=== PATIENT | female | born 1965 | race Caucasian/White ===

== ENCOUNTER 2020-04-21 12:19 | Inpatient (IN) | payer OTHER ==
[~2020-04-21] VITALS: Ht 165.1 cm; Wt 88.8 kg
[2020-04-21] VITALS (27 sets, daily range): BP systolic 87–110; BP diastolic 52–72
[2020-04-21] MEDS ORDERED: FUROSEMIDE 40MG/4ML VIAL (J1940) IV ONE (12:30)
[2020-04-21] MEDS ORDERED: ASPIRIN 81 MG CHEW TABLET PO ONE (12:30)
--- NOTE | 2020-04-21 13:08 | REP ---
Clinical: Chest pain. Comparison: None. Findings: Moderate left pleural effusion with left lower lobe consolidation along with trace right basilar atelectasis and small right pleural reaction. Cardiomegaly. Evidence for prior sternotomy. Skeletal structures are intact. Impression: Moderate left and small right pleural effusions with left lower lobe consolidation and right basilar atelectasis. Electronically Signed by Clinton Correa MD 04/21/2020 12:59 P
[2020-04-21] MEDS ORDERED: PROV108A INH (13:12)
[2020-04-21] MEDS ORDERED: K-TA10TA2 PO (13:12)
[2020-04-21] MEDS ORDERED: BASA100I SC (13:12)
[2020-04-21] MEDS ORDERED: ATOR40TA75 PO (13:12)
[2020-04-21] MEDS ORDERED: SUMA50TA2 PO (13:12)
[2020-04-21] MEDS ORDERED: STEG15TA PO (13:12)
[2020-04-21] MEDS ORDERED: METO200T28 PO (13:12)
[2020-04-21] MEDS ORDERED: HYDR-3713 PO (13:12)
[2020-04-21] MEDS ORDERED: INCR1INH INH (13:12)
[2020-04-21] MEDS ORDERED: AMIO400T7 PO (13:12)
[2020-04-21] MEDS ORDERED: OMEP-218 PO (13:12)
[2020-04-21] MEDS ORDERED: FERR325T16 PO (13:12)
[2020-04-21] MEDS ORDERED: ELIQ5TAB PO (13:12)
[2020-04-21] MEDS ORDERED: SUCR1TA PO (13:12)
[2020-04-21] MEDS ORDERED: FOLI1TAB11 PO (13:12)
[2020-04-21] MEDS ORDERED: MM S100C PO (13:12)
[2020-04-21] MEDS ORDERED: LOSA50TA88 PO (13:12)
[2020-04-21] MEDS ORDERED: ASPI81TA26 PO (13:12)
[2020-04-21] MEDS ORDERED: FURO20TA2 PO (13:12)
[2020-04-21] MEDS ORDERED: ADME100I SC (13:12)
[2020-04-21] MEDS ORDERED: METO10TA2 PO (13:12)
[2020-04-21] MEDS ORDERED: ALB2.5NEB NEB (13:12)
[2020-04-21] MEDS ORDERED: NEUR600T PO (13:12)
[2020-04-21] MEDS ORDERED: ONDANSETRON 4MG/2ML VIAL IV ONE (13:15)
[2020-04-21 14:43] LABS: VENOUS BASE EXCESS 6.2 (-2.0-2.0); VENOUS HCO3 31.7 MEQ/L (23.0-27.0); VENOUS PARTIAL PRESSURE CO2 50.4 mmHg (38.0-50.0); VENOUS PARTIAL PRESSURE O2 55.8 mmHg (30.0-50.0); VENOUS PH 7.416 UNITS (7.330-7.430); VENOUS STANDARD HCO3 29.9 MEQ/L; VENOUS TOTAL CO2 33.2 MEQ/L (24.0-28.0)
[2020-04-21] MEDS ORDERED: PERCOCET 5MG/325MG TAB PO ONE (14:45)
[2020-04-21 14:51] LABS: BASO % 0.4 % (0.0-1.0); EOS # 0.2 10^3/uL (0.0-0.5); EOS % 2.1 % (0.0-3.0); HEMATOCRIT 31.1 % (36.0-47.0); HEMOGLOBIN 9.1 g/dl (12.0-15.5); LYMPH # 2.1 10^3/uL (1.5-5.0); LYMPH % 18.7 % (24.0-44.0); MEAN CORPUSCULAR HEMOGLOBIN 23.9 pg (27.0-33.0); MEAN CORPUSCULAR HGB CONC 29.3 g/dl (32.0-36.5); MEAN CORPUSCULAR VOLUME 81.8 fl (80.0-96.0); MONO # 1.2 10^3/uL (0.0-0.8); MONO % 10.4 % (0.0-5.0); NEUTROPHILS # 7.6 10^3/uL (1.5-8.5); NEUTROPHILS % 67.6 % (36.0-66.0); PLATELET COUNT, AUTOMATED 410 10^3/uL (150-450); WHITE BLOOD COUNT 11.2 10^3/uL (4.0-10.0)
[2020-04-21 15:02] LABS: INR 1.11
[2020-04-21 15:15] LABS: BLOOD UREA NITROGEN 16 MG/DL (7-18); CALCIUM LEVEL 8.3 MG/DL (8.5-10.1); CARBON DIOXIDE LEVEL 33 MEQ/L (21-32); CHLORIDE LEVEL 96 MEQ/L (98-107); CK-MB VALUE MASS < 1.0 NG/ML (<3.6); CPK CREATINE PHOSPHOKINASE 29 U/L (26-192); GLOMERULAR FILTRATION RATE > 60.0 (>51); GLUCOSE, FASTING 159 MG/DL (70-100); MB/CK RELATIVE INDEX 3.45 (< OR =4); NT-PRO BNP 7510 PG/ML (<125); POTASSIUM SERUM 4.4 MEQ/L (3.5-5.1); SODIUM LEVEL 134 MEQ/L (136-145); TROPONIN I 0.07 NG/ML (< 0.10)
[2020-04-21] MEDS ORDERED: HumaLOG INSULIN (NovoLOG) PER UNIT SC SCH (18:00)
[2020-04-21] MEDS ORDERED: AMIO200T37 PO (18:03)
[2020-04-21] MEDS ORDERED: METO1TAB32 PO (18:03)
[2020-04-21] MEDS ORDERED: LOSA25TA14 PO (18:03)
--- NOTE | 2020-04-21 18:27 | HPEPDOC ---
General Date of Admission 04/21/2020 Date of Service: Apr 21, 2020 Chief Complaint The patient is a 54-year-old female admitted with a reason for visit of Irregular Heart Rate. Source: Patient Exam Limitations: Clinical conditions Timing/Duration: Day(s) (1 day for N/V and resting dyspnea started this morning), Week(s) (2 weeks for left sided chest pain) Severity: Severe Associated Symptoms: Chest Pain History of Present Illness Patient is a 54 yo female with hx of CAD s/p 2 stents in 2011 and CABG 04/08/2020 done at [facility] presented to [facility] ER due to resting dyspnea that started gradually this morning with nausea and 1 episode of emesis that started this morning. Denies any aggravating factor of resting dyspnea with alleviating factor being laying still. Reported left sided intermittent dull chest pain located under her left breast region since her CABG on 04/08/2020; reported no aggravating factor with alleviating factor including pain medication; denies radiation of chest pain. She reported pleuritic chest pain; denies dyspnea or orthopnea. When being asked if she had experience similar symptoms prior, pt reported yes when she had her heart attack. Denies any fever, chills, abdominal pain, constipation, diarrhea, or blood in stool. Denies any weight changes; rep orted that she is not on a diet restriction at this time Home Medications Scheduled Amiodarone HCl (Amiodarone HCl) 200 Mg Tablet, 200 MG PO BID@0830,1830 Apixaban (Eliquis) 5 Mg Tablet, 5 MG PO BID, (Reported) Aspirin (Aspirin EC) 81 Mg Tablet.dr, 81 MG PO DAILY, (Reported) Atorvastatin Calcium (Atorvastatin Calcium) 40 Mg Tablet, 40 MG PO DAILY, (Reported) Ertugliflozin Pidolate (Steglatro) 15 Mg Tablet, 15 MG PO DAILY, (Reported) Ferrous Gluconate (Ferrous Gluconate) 324 Mg Tablet, 324 MG PO BIDWM, (Reported) Folic Acid (Folic Acid) 1 Mg Tablet, 1 MG PO DAILY, (Reported) Furosemide (Furosemide) 40 Mg Tablet, 40 MG PO DAILY Gabapentin (Neurontin) 600 Mg Tablet, 600 MG PO TID, (Reported) Insulin Glargine,Hum.rec.anlog (Jamesaglcatherine Ramseypen U-100) 100 Unit/1 Ml Insuln.pen, 45 UNIT SC QHS, (Reported) Insulin Lispro (Admelog) 100 Unit/1 Ml Vial, 1 DOSE SC AC, (Reported) PER SLIDING SCALE Losartan Potassium (Cozaar) 25 Mg Tablet, 25 MG PO QHS Metoclopramide HCl (Metoclopramide HCl) 10 Mg Tablet, 10 MG PO QID, (Reported) Omeprazole (Omeprazole) 20 Mg Capsule.dr, 20 MG PO DAILY, (Reported) Sucralfate (Sucralfate) 1 Gm Tablet, 1 GM PO QID, (Reported) Umeclidinium [place] (Incruse Ellipta) 62.5 Mcg Blst.w.dev, 1 PUFF INH DAILY, (Reported) Scheduled PRN Albuterol Sulfate (Proventil Hfa) 6.7 Gm Hfa.aer.ad, 2 PUFF INH Q4H PRN for SOB/WHEEZING, (Reported) Albuterol Sulfate (Albuterol Sulfate) 2.5 Mg/0.5 Ml Vial.neb, 1 VIAL NEB Q6H PRN for SOB/WHEEZING, (Reported) Hydrocodone/Acetaminophen (Hydrocodone-Acetamin 5-325 mg) 1 Each Tablet, 2 TAB PO Q4H PRN for pain, (Reported) Sumatriptan Succinate (Sumatriptan Succinate) 50 Mg Tablet, 1 TAB PO DAILY PRN for MIGRAINE, (Reported) MAY REPEAT ONCE IN 2 HOURS IF SYMPTOMS PERSIST Allergies Coded Allergies: FISH (Verified Allergy, Unknown, 04/21/20) Past Medical History Medical History CAD s/p stents 09/2012 cardiac cath DM type 2 with peripheral neuropathy, gastroparesis Left lung cancer s/p left lower lobectomy 11/27/2017 Hyperlipidemia Hypertension COPD stage 3 Bilateral venous insufficiency Complex migraine Face arthritis DJD cervical spine C5-7 facet arthritis Gastritis Nicotine use disorder hx of Marijuna induced cyclical vomiting syndrome Hx of hypertensive urgency Surgical History See above Family History Patient's family history was reviewed and is noncontributory to this hospitalization Social History Patient is an active smoker She is noncompliant with medications and dietary restrictions A-FIB/CHADSVASC A-FIB History Current/History of A-Fib/PAF?: Yes Current PO Anticoag Therapy: Yes Age/Risk Factor Scoring CHADSVASC: CHADSVASC Response (Comments) Value Age Risk Factor Age < 65 years old 0 Gender Risk Factor Female 1 Hx of CHF No 0 Hx of HTN No 0 Hx of Diabetes Yes 1 Hx of Vascular Disease Yes 1 Total 3 Treatment Treatment ordered: Holding Other (holding home med eliquis) Reason Anticoagulant not given: Recent/upcomin procedure Review of Systems Constitutional: Denies: Chills, Fever, Weight Loss Pulmonary: Reports: Dyspnea Cardiovascular: Reports: Chest Pain; Denies: Palpitations, Orthopnea Gastrointestinal: Reports: Nausea, Vomiting; Denies: Abdominal Pain, Diarrhea, Constipation Physical Examination General Exam: Positive: Alert, Mild Distress ENT Exam: Positive: Atraumatic, Mucous membr. moist/pink Chest Exam: Positive: Other (frictional rub) Heart Exam: Positive: Rate Normal, Regular Rhythm, Rubs Telemetry: Positive: Sinus Abdomen Exam: Positive: Normal bowel sounds, Soft; Negative: Tenderness Extremity Exam: Negative: Edema, Swelling Skin Exam: Positive: Nl turgor and temperature Neuro Exam: Positive: Normal Speech, Normal Tone Psych Exam: Positive: Mental status NL, Memory Intact Vital Signs Vital Signs Date Time Temp Pulse Resp B/P (MAP) Pulse Ox O2 Delivery O2 Flow Rate FiO2 04/21/20 18:02 67 99 04/21/20 17:53 114/66 (82) 04/21/20 15:29 18 04/21/20 12:24 99.0 Room Air Laboratory Data Labs 24H Laboratory Tests 2 04/21/20 12:50: POC Troponin I (Misc) 0.08 04/21/20 14:36: Immature Granulocyte % (Auto) 0.8, Neutrophils (%) (Auto) 67.6H, Lymphocytes (%) (Auto) 18.7L, Monocytes (%) (Auto) 10.4H, Eosinophils (%) (Auto) 2.1, Basophils (%) (Auto) 0.4, Neutrophils # (Auto) 7.6, Lymphocytes # (Auto) 2.1, Monocytes # (Auto) 1.2H, Eosinophils # (Auto) 0.2, Basophils # (Auto) 0.0, Nucleated Red Blood Cells % (auto) 0.0, Prothrombin Time 14.0, Prothromb Time International Ratio 1.11, Blood Gas Bicarbonate Standard 29.9, Venous Blood pH 7.416, Venous Blood Partial Pressure CO2 50.4H, Venous Blood Partial Pressure O2 55.8H, Venous Blood Total Carbon Dioxide 33.2H, Venous Blood HCO3 31.7H, Venous Blood Oxygen Saturation 87.0H, Venous Blood Base Excess 6.2H, Anion Gap 5L, Glomerular Filtration Rate > 60.0, Calcium Level 8.3L, Total Creatine Kinase 29, Creatine Kinase MB < 1.0, Creatine Kinase MB Relative Index 3.45, Troponin I 0.07, ZU-Jls-U-Type Natriuretic Peptide 7510H CBC/BMP Laboratory Tests 04/21/20 14:36 Assessment/Plan 1. Left sided moderate pleural effusion with right sided small pleural effusion likely related to recent CABG. CABG 04/08/2020. Dr. Adair was consulted with chest tube placement. CT chest ordered. Pt sat well on RA. Last eliquis dose 04/20/2020 morning. Protonix daily for GI prophylaxis.Oxygen therapy, resp treatment with incentive spirometry 2. Unstable angina. Reported to be presented since 04/08/2020 after CABG, anthony mccloud 2/2 pleural effusion as pt also reported pleuritic chest pain. A fib with RVR noted in ER EKG. Currently at RRR. First trop neg; repeat trop. Echo ordered. Cont home med statin and aspirin. S/p 324mg aspirin in ER. Zofran and pain meds PRN. 48 hr tele. Lactic acid ordered. 3. HTN. Hx of HTN. Pt's BP soft with lowest MAP recorded to be 51 at 1747. Will hold home HTN med at this time. Pt received 1 dose of IV lasix 40mg in the ER. Will order 250ml NS bolus at this time per group discussion; may give more IV bolus depending on blood pressure. IV D5 NS a rate of 75ml/hr was ordered by Dr. Adair. Cont home med statin, aspirin. Vital signs standard of care. 4. CAD with hx of 2 stents placed in 2011 and recent CABG on 04/08/2020. Cont home med amiodarone, aspirin 81mg QD and atorvastatin 40mg QD. Hold eliquis as pt is getting a chest tube placement. Continue home med amiodarone. Hold home med metoprolol. Cardiology Dr. Sherman and intensivnist Dr. Hyman consulted. 5. DM type 2 with peripheral neuropathy. Hold home insulin and losartan as patient's BP is soft. Hold home med Steglatro. Insulin SS Q6H with glucose check Q6h, hypoglycemia protocol. Cont home gabapentin for peripheral neuropathy 6. Gastroparesis 2/2 DM neuropathy. Cont home med metoclopramide. Zofran PRN 7. Gastritis. Hx of gastritis. Pt on protonix 40mg QD. Cont home med sucralfate. 8. Migraine. Cont home med sumatriptan. 9. Paroxysmal a. fib with RVR, new onset, resolved. Pt had EKG in ER 04/21/2020 showing A. fib with RVR with ventricular rate of 102. At the time of examination patient was in sinus rhythm without tachycardia. Resume home amiodarone. Hold home eliquis for procedure now. 10. COPD. Hx of COPD. Mild hypercarbia with CO2 33.2. Replace home incruse elipta to tiotropium as no formula in house. Xopenex scheduled and PRN. Oxygen therapy 11. Compensated respiratory acidosis with metabolic alkalosis. CO2 33.2 on ABG. Replace home incruse elipta to tiotropium as no formula in house. Xopenex scheduled and PRN. Oxygen therapy DVT prophylaxis: SCD and TEDS / Will start Lovenox for DVT prophylaxis (while off Eliquis) - discussed with Cardiology GI prophylaxis: protonix PO Plan / VTE VTE Prophylaxis Ordered?: Yes Plan IVF: Initiate Diet: Make NPO Activity: Bedrest Therapy: PT Diagnostics: Check Labs, Repeat Labs in AM, TTE Anticipated Discharge: Home GME ATTESTATION GME ATTESTATION My faculty preceptor for this patient encounter was physically present during the encounter and was fully available. All aspects of the patient interview, examination, medical decision making process, and medical care plan development were reviewed and approved by the faculty preceptor. The faculty preceptor is aware and concurs with the plan as stated in the body of this note and will attest to such by his/her cosignature. ATTENDING NOTE I, Lucero Ramirez, have independently examined this patient and performed my own physical exam, as well as reviewed the documentation and edited where necessary. I have discussed in detail with the resident / student the findings and plan of treatment as documented by the resident / student and edited their note. I agree with their findings and treatment plan and have edited their documentation. I will continue to follow the patient during this hospital stay. - I seen and evaluated this patient at the bedside - Patient does appear to reveal signs of fluid overload; diminished lung sounds at bilateral lower lung perla and lower extremity edema - Patient has received furosemide 40 IV in the emergency room and upon evaluation, patient was noted to be hypotensive with SBPs in 70s (MAP < 65) - Imaging his chest x-ray did reveal evidence of bilateral pleural effusions, le ft greater than right - At this time, we will get stat CT chest, echocardiogram and admit patient to ICU for further monitoring - Continue telemetry monitoring / troponin trend - We have consult and children's ministry director for possible central line placement and pressor support if required - Consult to cardiothoracic surgery for evaluation of pleural and possibly pericardial effusion - Consulted Dr. Sherman given recent CABG procedure completed on 04/09 BITA GILBERT DO Apr 21, 2020 18:27 LUCERO RAMIREZ MD Apr 21, 2020 19:44
[2020-04-21] MEDS ORDERED: PERCOCET 5MG/325MG TAB PO PRN (18:30)
[2020-04-21] MEDS ORDERED: BISACODYL 10 MG SUPP PR PRN (18:30)
[2020-04-21] MEDS ORDERED: LEVALBUTEROL 1.25 MG/0.5 ML CONCENTRATE NEB NEB PRN (18:30)
--- NOTE | 2020-04-21 18:39 | REPVR ---
PROCEDURE INFORMATION: Exam: CT Chest Without Contrast Exam date and time: 04/21/2020 6:16 PM Age: 54 years old Clinical indication: Other: Effussions TECHNIQUE: Imaging protocol: Computed tomography of the chest without contrast. 3D rendering: MIP and/or 3D reconstructed images were created by the technologist. Radiation optimization: All CT scans at this facility use at least one of these dose optimization techniques: automated exposure control; mA and/or kV adjustment per patient size (includes targeted exams where dose is matched to clinical indication); or iterative reconstruction. COMPARISON: [place] PORTABLE CHEST X-RAY 04/21/2020 12:46 PM FINDINGS: Lungs: Semi-solid predominate ground-glass parenchymal opacities demonstrated in the right upper lobe, and minimally in the right middle lobe. Findings may represent chronic changes however are also consistent with acute or subacute pneumonitis. Compressive atelectasis at both lung bases. Pleural space: Small right pleural effusion and moderate left pleural effusion. Heart: Status post CABG. Cardiomegaly. Aorta: The aorta demonstrates mild atherosclerotic calcification. Lymph nodes: Unremarkable. No enlarged lymph nodes. Bones/joints: Status post sternotomy. Soft tissues: Unremarkable. IMPRESSION: 1. Semi-solid predominate ground-glass parenchymal opacities demonstrated in the right upper lobe, and minimally in the right middle lobe. Findings may represent chronic changes however are also consistent with acute or subacute pneumonitis. 2. Small right pleural effusion and moderate left pleural effusion. 3. Status post CABG. Cardiomegaly. Electronically signed by: Guy Saldaña On 04/21/2020 18:39:45 PM
[2020-04-21] MEDS ORDERED: NS 250 ML IV ONE (18:45)
[2020-04-21] MEDS ORDERED: DEXTROSE 50% 50 ML SYRINGE IV PRN (19:00)
[2020-04-21] MEDS ORDERED: SUMAtriptan SUCCINATE 25 MG TAB PO PRN (19:00)
[2020-04-21] MEDS ORDERED: D5W/0.9% SODIUM CHLORIDE 1,000 ML IV SCH (19:00)
[2020-04-21] MEDS ORDERED: GLUCOSE 4GM CHEW TABLET PO PRN (19:00)
[2020-04-21] MEDS ORDERED: GLUCAGON INJ 1MG VIAL SC PRN (19:00)
[2020-04-21] MEDS ORDERED: ATORVASTATIN 20 MG TAB PO ONE (19:00)
[2020-04-21] MEDS ORDERED: MIDAZOLAM INJ 2MG/2ML VIAL (J2250 PER 1MG) As Ordered ONE ×2 (19:18→19:19)
[2020-04-21] MEDS ORDERED: flumazeniL 0.5 MG/5 ML VIAL As Ordered ONE (19:19)
[2020-04-21] MEDS ORDERED: LIDOCAINE 1% MDV 20ML VIAL As Ordered ONE ×2 (19:20→20:10)
[2020-04-21] MEDS ORDERED: LIDOCAINE 1% MDV 20ML VIAL IM ONE (19:30)
[2020-04-21] MEDS ORDERED: MIDAZOLAM INJ 2MG/2ML VIAL (J2250 PER 1MG) IV STA (19:30)
[2020-04-21 20:02] LABS: LDH LACTATE DEHYDROGENASE 206 U/L (84-246)
[2020-04-21 20:05] LABS: SOURCE, BODY FLUID PLEURAL
[2020-04-21 20:06] LABS: APPEARANCE, BODY FLUID CLOUDY (CLEAR); PLEURAL FL COLOR YELLOW (COLORLESS)
[2020-04-21 20:07] LABS: PH BODY FLUID 7.471 UNITS (NOT ESTABLISHED); SOURCE, BODY FLUID pH PLEURAL
--- NOTE | 2020-04-21 20:09 | REP ---
Clinical: Effusion. Chest tube placement. Comparison: 04/21/2020 at 12:48 p.m. Findings: Chest tube overlies the left base and left pleural effusion is decreased from prior examination. No pneumothorax. Small right pleural effusion and right basilar atelectasis remain unchanged. Mediastinum and cardiac silhouette stable. Impression: 1. Left-sided chest tube with decreased left pleural effusion. 2. The small right pleural effusion and right basilar atelectasis is unchanged. Electronically Signed by Clinton Correa MD 04/21/2020 08:01 P
[2020-04-21 20:28] LABS: AMYLASE, BODY FLUID 7 U/L (NOT ESTABLISHED); CHOLESTEROL, BODY FLUID < 50 MG/DL (NOT ESTABLISHED); LDH, BODY FLUID 167 U/L (NOT ESTABLISHED); SOURCE, BODY FLUID ALBUMIN PLEURAL; SOURCE, BODY FLUID AMYLASE PLEURAL; SOURCE, BODY FLUID CHOL PLEURAL; SOURCE, BODY FLUID GLUCOSE PLEURAL; SOURCE, BODY FLUID LDH PLEURAL; SOURCE, BODY FLUID TOT PROTEIN PLEURAL; SOURCE, BODY FLUID TRIG PLEURAL; TOTAL PROTEIN, BODY FLUID 2.8 G/DL (NOT ESTABLISHED); TRIGLYCERIDE, BODY FLUID 22 MG/DL (NOT ESTABLISHED)
[2020-04-21] MEDS ORDERED: NS 500 ML IV ONE (20:30)
[2020-04-21] MEDS: FOLIC ACID 1 MG TAB PO SCH (21:00)
[2020-04-21] MEDS ORDERED: ENOXAPARIN 40MG/0.4ML SYRINGE (J1650 PER 10MG) SC SCH (21:00)
[2020-04-21] MEDS: HumaLOG INSULIN (NovoLOG) PER UNIT SC SCH (21:00)
[2020-04-21] MEDS: GABAPENTIN 300 MG CAP PO SCH (21:02)
[2020-04-21] MEDS: DOCUSATE SODIUM 100 MG CAP PO SCH (21:03)
[2020-04-21] MEDS: METOCLOPRAMIDE 10 MG TAB PO SCH (21:03)
[2020-04-21] MEDS: SUCRALFATE 1 GM TAB PO SCH (21:03)
[2020-04-21] MEDS: PIPERACILLIN/TAZOBACTAM SOD 3.375 GM in D5W MINI-BAG PLUS 50 ML IV SCH (21:05)
[2020-04-21] MEDS: PERCOCET 5MG/325MG TAB PO PRN (21:05)
[2020-04-21] MEDS: LEVALBUTEROL 1.25 MG/0.5 ML CONCENTRATE NEB NEB SCH (21:20)
[2020-04-21 21:32] LABS: CK-MB VALUE MASS < 1.0 NG/ML (<3.6); CPK CREATINE PHOSPHOKINASE 27 U/L (26-192); TROPONIN I 0.07 NG/ML (< 0.10)
[2020-04-21 21:55] LABS: ALBUMIN 2.4 GM/DL (3.2-5.2); ALT/SGPT 17 U/L (12-78); BILIRUBIN,TOTAL 0.4 MG/DL (0.2-1.0); BLOOD UREA NITROGEN 16 MG/DL (7-18); CALCIUM LEVEL 8.1 MG/DL (8.5-10.1); CARBON DIOXIDE LEVEL 33 MEQ/L (21-32); CHLORIDE LEVEL 100 MEQ/L (98-107); CREATININE FOR GFR 0.65 MG/DL (0.55-1.30); GLOMERULAR FILTRATION RATE > 60.0 (>51); GLUCOSE, FASTING 90 MG/DL (70-100); POTASSIUM SERUM 4.3 MEQ/L (3.5-5.1); SODIUM LEVEL 139 MEQ/L (136-145); TOTAL PROTEIN 5.4 GM/DL (6.4-8.2)
[2020-04-21] MEDS: TIOTROPIUM INHALER/CAPSULE (SPIRIVA) INH SCH (22:00)
[2020-04-22] VITALS (12 sets, daily range): BP systolic 88–135; BP diastolic 50–73
[2020-04-22] MEDS: PERCOCET 5MG/325MG TAB PO PRN ×4 (02:03→21:12)
[2020-04-22] MEDS: PIPERACILLIN/TAZOBACTAM SOD 3.375 GM in D5W MINI-BAG PLUS 50 ML IV SCH ×4 (02:53→21:10)
[2020-04-22] MEDS: LEVALBUTEROL 1.25 MG/0.5 ML CONCENTRATE NEB NEB SCH ×4 (02:53→18:03)
[2020-04-22 03:53] LABS: BASO % 0.3 % (0.0-1.0); EOS # 0.3 10^3/uL (0.0-0.5); EOS % 2.3 % (0.0-3.0); HEMATOCRIT 31.2 % (36.0-47.0); HEMOGLOBIN 9.1 g/dl (12.0-15.5); LYMPH # 2.3 10^3/uL (1.5-5.0); MEAN CORPUSCULAR HEMOGLOBIN 24.3 pg (27.0-33.0); MEAN CORPUSCULAR HGB CONC 29.2 g/dl (32.0-36.5); MEAN CORPUSCULAR VOLUME 83.2 fl (80.0-96.0); MONO # 1.1 10^3/uL (0.0-0.8); MONO % 9.7 % (0.0-5.0); NEUTROPHILS # 7.7 10^3/uL (1.5-8.5); NEUTROPHILS % 67.2 % (36.0-66.0); PLATELET COUNT, AUTOMATED 374 10^3/uL (150-450); RED BLOOD COUNT 3.75 10^6/uL (4.00-5.40); WHITE BLOOD COUNT 11.5 10^3/uL (4.0-10.0)
[2020-04-22 04:23] LABS: BLOOD UREA NITROGEN 18 MG/DL (7-18); CALCIUM LEVEL 8.1 MG/DL (8.5-10.1); CARBON DIOXIDE LEVEL 33 MEQ/L (21-32); CHLORIDE LEVEL 98 MEQ/L (98-107); CK-MB VALUE MASS 1.3 NG/ML (<3.6); CPK CREATINE PHOSPHOKINASE 39 U/L (26-192); CREATININE FOR GFR 0.77 MG/DL (0.55-1.30); GLOMERULAR FILTRATION RATE > 60.0 (>51); GLUCOSE, FASTING 255 MG/DL (70-100); MB/CK RELATIVE INDEX 3.33 (< OR =4); POTASSIUM SERUM 4.4 MEQ/L (3.5-5.1); SODIUM LEVEL 137 MEQ/L (136-145); TROPONIN I 0.07 NG/ML (< 0.10)
--- NOTE | 2020-04-22 07:16 | ECHO ---
DATE OF PROCEDURE: 04/21/2020 REFERRING PHYSICIAN: Dr. Sherman. INDICATION: Hypotension, status post open heart surgery. HEIGHT: 165 cm. WEIGHT: 94 kg. DIMENSIONS: Aorta - 2.6 LA - 3.7 RV - 3.5 IVS - 1.0 LV - 4.0 LVPW - 1.0 IVC - 1.6 Mitral E wave velocity - 121, A-wave - 76, E prime septal - 6.2 E prime lateral - 4.9 FINDINGS: The study is of acceptable technical quality. The patient is in sinus rhythm. Normal LV size. There is a septal wall motion abnormality involving mid and distal septum and apex and also distal inferolateral wall. These segments are essentially akinetic. The remaining segments have overall preserved contractility. I estimate overall EF around 45-50%. Right ventricle does not appear grossly dilated and is normally contractile. Both atria appear normal. Trivial pericardial effusion is noted. All four cardiac valves were reasonably well seen and appear normal. Left pleural effusion is seen. Inferior vena cava is of relatively small caliber and completely collapses with inspiration indicative of likely normal central venous pressure. Aortic root and abdominal aorta appear normal. Aortic arch was not well seen. Doppler interrogation reveals competent aortic valve. There is mild mitral and mild tricuspid insufficiency. Calculated pulmonary artery pressure is in low 30s which is in the upper limits of normal values. Trace pulmonic insufficiency seen. Mitral inflow pattern and tissue Doppler imaging of mitral annulus reveal grade 2 diastolic dysfunction. CONCLUSION: 1. Study is of acceptable technical quality. The patient is in sinus rhythm. 2. Normal LV size with this mid and distal septal, apical, distal inferolateral wall motion abnormality with overall estimated LVEF around 45-50%. Grade 2 diastolic dysfunction. 3. No hemodynamically significant valvular disease. 4. Study is suggestive of normal central venous pressure and likely normal only mildly elevated pulmonary artery pressure. 5. Left pleural effusion. COMMENT: The results of the study were discussed with Dr. Lucero Ramirez. [facility] CENTER[facility]arian
--- NOTE | 2020-04-22 07:44 | RO ---
DATE OF PROCEDURE: 04/21/2020 PREPROCEDURE DIAGNOSIS: Left pleural effusion status post coronary artery bypass grafting on 04/08/2020. POSTPROCEDURE DIAGNOSIS: Left pleural effusion status post coronary artery bypass grafting on 04/08/2020. PROCEDURE: Insertion of left lateral posterior chest tube with moderate sedation. SURGEON: Dr. Jostin Adair. PRODUCTION CONTROL TECHNOLOGIST: ANESTHESIA: Moderate sedation. 2 mg of Versed. FINDINGS: Chest tube revealed 1400 mL of serosanguineous fluid, a lot more serous than sanguinous. DESCRIPTION OF PROCEDURE: Under satisfactory moderate sedation, achieved eventually with 2 mg of Versed, patient was prepped and draped in the usual sterile fashion. An incision was made over the approximate 6th intercostal space. After infiltrating the skin and subcutaneous tissue, musculature and pleural with 1% lidocaine. A tunnel was treated in the chest and a #24 chest tube was placed without difficulty. We drained 1400 mL of mostly serous fluid. It was sent to pathology for studies of microbiology and hematologies, chemistries and pathologies. The drain was connected to the Pleur-evac and secured to the chest with #2-0 Tevdek suture. The patient tolerated the procedure well and a chest x-ray is pending.
[2020-04-22] MEDS: TIOTROPIUM INHALER/CAPSULE (SPIRIVA) INH SCH (08:00)
--- NOTE | 2020-04-22 08:00 | CR ---
DATE OF CONSULTATION: 04/21/2020 The patient is seen at the request of the hospitalist service, Dr. Ramirez, for shortness of breath and a left pleural effusion. HISTORY OF THE PRESENT ILLNESS: The patient is a 54-year-old white female who underwent a coronary artery bypass grafting procedure at [facility] emergently on 04/08/2020. She had already previously undergone stenting procedures in the remote past for preexisting coronary artery disease. She states that she had two or three bypasses but was not aware of the technique, i.e. on or off pump. She states that she was in the hospital for about a week and then was discharged. Things went well until this morning when she started to experience shortness of breath when she awoke. The shortness of breath continued, and she sought medical attention here. She has had no cough, no fever, chills, or sweats, or sputum production. There has been no hemoptysis. She has some mild chest pain in the middle of her chest from her sternotomy. There is no dysphagia. A chest x-ray in the emergency room was done, which showed an opacity in the left lower hemithorax, which on CT scanning was a large pleural effusion, but there was no pericardial effusion. ADDENDUM: (continuation) PAST MEDICAL ILLNESSES: Diabetes. Coronary artery disease. Left lower lobe lung cancer, status post lower lobectomy in 2018. Hypertension. Chronic obstructive pulmonary disease (COPD). Nicotine abuse. Atrial fibrillation. SURGERY: The above lobectomy and coronary artery bypass, and also an appendectomy in the remote past. MEDICATIONS AT HOME: - amiodarone 400 mg daily - Eliquis 5 mg twice a day - aspirin 81 mg daily - atorvastatin 40 mg daily - Steglatro 15 mg daily - folic acid 1 mg daily - Lasix 20 mg daily - gabapentin 600 mg three times a day - insulin glargine 45 units subcu nightly - insulin Lispro per sliding scale - losartan 25 mg daily - metoclopramide 10 mg four times a day - metoprolol 25 mg daily - omeprazole 20 mg daily - potassium chloride 10 mEq daily - Incruse Ellipta 62.5 one puff four times a day ALLERGIES: She claims an allergy to fish. HABITS: Still smokes about two cigarettes per day. Denies alcohol use or illicit drugs. EXPOSURES: No dogs, birds, cats at home. TRAVEL HISTORY: None outside [facility]. OCCUPATIONAL HISTORY: Used to work with a [employer] throughout [facility]. FAMILY HISTORY: Not relevant to the acute situation. REVIEW OF SYSTEMS: CONSTITUTIONAL: See history of the present illness. EYES: Without diplopia, without dryness, without amaurosis fugax. NOSE: Without epistaxis. MOUTH: Wears dentures but did not have them with her. RESPIRATORY: See history of the present illness. CARDIAC: See history of the present illness. Denies peripheral edema or intermittent claudication. GASTROINTESTINAL (GI): Had a bout of nausea this morning with vomiting. No diarrhea, constipation, melena, hematochezia, hematemesis or abdominal pain. GENITOURINARY (): Without dysuria, hematuria, or history of renal stones. ENDOCRINE: See history of the present illness. Has diabetes. No thyroid disease. NEUROLOGIC: Without paresthesias, paralyses or prior seizures. PSYCHIATRIC: Without pathologic anxieties, depression or psychoses. PHYSICAL EXAMINATION: Well-developed, chronically ill white female in mild respiratory distress, who is also obese. VITAL SIGNS: Temperature is 98.4, pulse of 67, with a respiratory rate of 16, a blood pressure of 110/57 who is 96% saturated on two liters nasal cannula. Respiratory rate is 16 without the use of accessory muscles. EYES: Pupils equal, round and reactive to light. Extraocular motions are intact. Sclerae nonicteric. HEAD: Normocephalic. NOSE: Without deformity. MOUTH: Shows her mucous membranes to be pink and moist. Lips and commissures without lesions. There is no thrush. She is completely edentulous. NECK: Neck is supple. There is no jugular venous distention. No subcutaneous emphysema. Trachea is midline. There is no lymphadenopathy or thyromegaly. LUNGS: Show markedly decreased breath sounds in the left hemithorax with e to a egophony along with bronchophony in the left hemithorax. Percussion note is dull up to the mid level of the hemithorax. Right side shows inspiratory rales at the base, which do not clear with coughing. CARDIAC: Cardiac exam is without murmurs, clicks, gallops or rubs. I cannot feel her point of maximum impulse (PMI). S1, S2 are normal. I have taken down her coronary artery bypass grafting bandage, and it looks intact and not infected. ABDOMEN: Soft, nontender. Bowel sounds are positive. There is no hepatomegaly. No costovertebral angle tenderness. EXTREMITIES: Show trace pretibial edema. No calf tenderness. No differential swelling of the upper extremities. SKIN: Warm, dry and perfused without cyanosis or mottling, including that of the nail beds and the knees. NEUROLOGIC: Shows II-XII intact along with gross motor and gross sensation intact. Gait is not tested. PSYCHIATRIC: Shows her to be awake and alert, oriented times three with appropriate mood and affect and conversational. INVESTIGATIONS: White count is 11.2 with a hemoglobin and hematocrit of 9.1 and 31.1 and a platelet count of 410. Differential shows 67% neutrophils, 18% lymphocytes, 10% monocytes. There are no immature forms. No toxic granulations. Her electrolytes are essentially normal with a marginally high total CO2 of 33. BUN and creatinine are at 16 and 0.65 respectively with a glucose of 90 and a calcium of 8.1. Corresponding albumin is 2.4. AST and ALT are normal. Venous blood gases show a pH of 7.41, a pCO2 of 50 and a base excess of 6.2. Her serology has come back COVID negative. Her troponin is 0.07 with a CK-MB less than 1 and a beta-natriuretic peptide of 7510. Her chest x-ray shows complete opacification of the left lower hemithorax. Chest CT confirmed the pleural effusion. There is no pericardial effusion. She has patchy infiltrates in the right upper lobe. There are emphysematous changes. There is compression of the left lung. IMPRESSION: 1. Large pleural effusion. 2. Status post recent coronary bypass grafting. 3. Coronary artery disease. 4. Prior myocardial infarction. 5. Diabetes. 6. Hypertension. 7. Prior lobectomy for stage 1 lung cancer. 8. Adenocarcinoma. PLAN AND DISCUSSION: The first order of business will be to place a chest tube and relieve her of her pleural effusion. I suspect there will be a serosanguineous effusion from her heart surgery. She is hypotensive, and I have asked the medical service to give a 500 mL bolus of normal saline.
[2020-04-22] MEDS: ASPIRIN 81 MG ENTERIC TAB PO SCH (08:44)
[2020-04-22] MEDS: METOCLOPRAMIDE 10 MG TAB PO SCH ×4 (08:44→21:12)
[2020-04-22] MEDS: FOLIC ACID 1 MG TAB PO SCH (08:44)
[2020-04-22] MEDS: AMIODARONE 200 MG TAB (PACERONE) PO SCH (08:44)
[2020-04-22] MEDS: DOCUSATE SODIUM 100 MG CAP PO SCH ×2 (08:44→21:12)
[2020-04-22] MEDS: SUCRALFATE 1 GM TAB PO SCH ×4 (08:44→21:11)
[2020-04-22] MEDS: MOM 30ML SUSPENSION UDC PO SCH (08:44)
[2020-04-22] MEDS: FERROUS GLUCONATE 324 MG TAB PO SCH ×2 (08:44→17:44)
[2020-04-22] MEDS: HumaLOG INSULIN (NovoLOG) PER UNIT SC SCH ×4 (08:44→21:00)
[2020-04-22] MEDS: PANTOPRAZOLE 40MG TAB (PROTONIX) PO SCH (08:45)
[2020-04-22] MEDS: GABAPENTIN 300 MG CAP PO SCH ×3 (08:45→21:11)
--- NOTE | 2020-04-22 09:48 | REP ---
Clinical: Follow up pleural effusion. Technique: PA and lateral. Comparison: 04/21/2020. Findings: Left basilar chest tube in stable position. Left pleural effusion has decreased from prior examination and a subsequent small left apical pneumothorax is now identified. Bibasilar atelectasis/infiltrates and small right pleural effusion remain unchanged. Impression: 1. Small left apical pneumothorax. Decreased left pleural effusion. 2. Bibasilar opacities/atelectasis and small right pleural effusion unchanged. Electronically Signed by Clinton Correa MD 04/22/2020 09:40 A
--- NOTE | 2020-04-22 10:37 | CR ---
DATE OF CONSULTATION: 04/22/2020 REFERRING PHYSICIAN: Dr. Lucero Ramirez. INDICATION: Left pleural effusion, status post recent coronary artery bypass graft (CABG). HISTORY OF PRESENT ILLNESS: Mrs. Joseluis Perez is known to me from several years ago when we were providing clearance for her left lower lobectomy. She since has been lost to followup in our office but she presented on April 08, 2020 with acute myocardial infarction. It led to transfer to [facility] where coronary angiography revealed a critical left main disease and she underwent emergency coronary artery bypass grafting the same day by Dr. Ansari with implantation of MORRISON to LAD and SVG to obtuse marginal. She was discharged home on April 14, 2020. According to the information I learned from the [facility] computer, there were early on signs of noncompliance with salt, fluid and insulin instructions. Nevertheless, she presented to our facility on April 21, 2020 because of progressive dyspnea. She had mild peripheral edema that apparently has been present since her discharge from the hospital. She did not have any fever or chills. There was some chest discomfort in the form of soreness. She also had one episode of nausea and vomiting. The emergency room evaluation included a chest x-ray that revealed large left pleural effusion that was subsequently confirmed by CT scan. An echocardiogram that was performed emergently at bedside yesterday after the patient became hypotensive revealed mildly reduced left ventricular systolic function with apical, anteroseptal and inferoseptal wall motion abnormality, no significant valvular disease and surprisingly normal central venous pressure. Chest tube was placed by Dr. Adair. She did reasonably well overnight. This morning she tells me that she is feeling overall much improved. She has some soreness at the site of the chest tube and also at her sternotomy site, but otherwise denies any chest pain. Her shortness of breath is improved. PAST MEDICAL HISTORY: 1. Coronary artery disease. She has a remote history of stenting to left circumflex artery followed by bypass surgery as outlined above. 2. History of lung cancer resection of left lower lobe in early 2018. 3. Hypertension. 4. Chronic obstructive pulmonary disease (COPD). 5. Postoperative paroxysmal atrial fibrillation. 6. History of cigarette dependency. 7. Hypercholesterolemia. PAST SURGICAL HISTORY: 1. Left lower lobe resection for lung cancer and 2018 that was 1. Coronary artery bypass graft (CABG). 3. Appendectomy. OUTPATIENT MEDICATIONS: - amiodarone 400 mg a day - Eliquis 5 mg twice a day - aspirin 81 mg a day - atorvastatin 40 mg a day - Steglatro left roll 15 mg a day - folic acid 1 mg a day - Lasix 20 mg a day - [id number] mg three times a day - Glargine insulin 45 units at night - Lispro sliding scale - losartan 25 mg a day - metoclopramide 10 mg four times a day - metoprolol 25 mg a day - omeprazole 20 mg a day - potassium chloride 10 mEq a day - Incruse Ellipta 6.5 mg 1.4 times daily. ALLERGIES: FISH. SOCIAL HISTORY: The patient is single, lives alone, even though she currently stays with her cousin that is essentially her neighbor. She has no children. She smoked for most of her life typically a pack a day and is currently down to 2 or 3 cigarettes a day. No alcohol use. She denies drug use. FAMILY HISTORY: No longer relevant. REVIEW OF SYSTEMS: She denies any fever, chills, she had nausea and vomiting. She is not sure about her weight changes. Chest pain as per HPI, shortness of breath as HPI. She did not have any poly paroxysmal nocturnal dyspnea (PND), or orthopnea. No abdominal pain. No diarrhea but she vomited at least a couple times. No symptoms of urinary tract infection (UTI). She reported peripheral edema is very common and she has it very frequently. There is no history of bleeding problems. She did not notice any melena and there was no blood in her vomitus. There is no history of neurologic problems. PHYSICAL EXAMINATION: Mrs. Joseluis Perez is a middle-aged woman who appears much older than her calendar age. She appears chronically but not acutely ill. She is sitting in a chair next to her intensive care unit (ICU) bed. Last set of vital signs: Blood pressure 106/60, heart rate has been in 70s mostly sinus rhythm, even though she had brief episodes of atrial fibrillation. Saturation is currently 95% on 2 liters of oxygen by nasal cannula. Weight was recorded as 91.4 kg. Her urine output today already positive for about a liter. She is alert and oriented times three. H emergency room jugular venous pulse (JVP) is not high. Lungs are revealing crackles throughout her right lung field. No wheezes on the left it is much clear. Also has some occasional crackles. There are diminished breath sounds but not more than a few inches over the base. Heart exam reveals regular rhythm. I do not appreciate any gallop or rub or murmur. Somewhat muffled heart sounds sternotomy is healing appropriately. I do not see any signs of infection. Abdomen is soft and nontender. She has 2 to 3+ edema to her thighs. Neurologically she is alert and oriented, appropriate and easily moves all four extremities. I did not do any formal testing of her deep tendon reflexes (DTRs) or muscle strengths. I do not appreciate any skin lesions with the exception of scars after her surgeries and she does have an area where the epidural catheter was placed that looks inflamed and per nursing staff, she was draining purulent fluid earlier today. LABORATORY: Her CBC reveals WBC count 11.5, hemoglobin 9.1, hematocrit 31.2 and platelet count 374,000. Basic metabolic panel this morning; Sodium 139, potassium 4.4, BUN 18, creatinine 0.8, glucose 255. She had normal liver function tests with exception of 173 alkaline phosphatase. Three sets of cardiac enzymes were negative and terminal proBNP was 7500. Total protein 5.4, albumin 2.4. The analysis of pleural fluid revealed pH 7.47. There was about 1300 white blood cells, glucose 124, total protein 2.8, albumin 1.5, LDH 167, amylase 7, cholesterol less than 50, triglycerides 22. IMAGING: As per HPI. The chest x-ray this morning reveals almost complete elimination of the left pleural effusion. There is persistent cardiomegaly and there are changes suggestive of congestive heart failure. ECG reveals presence of sinus rhythm with evidence for recent anteroapical myocardial infarction with loss of progression of R waves across anterior wall which is new compared to her EKG just a few weeks ago. ASSESSMENT/PLAN: Mrs. Huggins is a 54-year-old female who has multiple medical problems, most importantly though she suffered a myocardial infarction on April 08 which is exactly 2 weeks ago and was found to have severe left main and proximal LAD disease on angiogram that prompted performance of two-vessel CABG on the same day. Now she presents with dyspnea and had a large left pleural effusion. It is exudative by fluid analysis but not as convincingly as I was expecting. I do assume that there is a component of congestive heart failure to her presentation. At this point the chest tube will stay in and we will focus on optimizing her medical management. I will continue amiodarone for the time being because she still has episodes of paroxysmal atrial fibrillation. Will restart gentle diuresis and stop IV fluids. As of yesterday, she did not tolerate the administration of diuretics after which blood pressure dropped and her central venous pressure (CVP) does not look elevated but she certainly has signs of left heart failure. Unfortunately, low blood pressure limits the options of medications. As far as the atrial fibrillation is concerned, she is mostly in sinus rhythm but will continue amiodarone as above. She was anticoagulated with Eliquis but for the timing will use Lovenox and that will give was higher flexibility on stopping it for a short period of time. We will continue lipid lowering medications and diabetes management remains with primary care provider. I explained the importance of smoking cessation to her prognosis. It seems to me that the patient has very little social support that undoubtedly plays a role in her medical care. RACQUEL
[2020-04-22] MEDS: ENOXAPARIN 100MG/1ML SYRINGE (J1650 PER 10MG) SC SCH ×2 (10:42→21:11)
[2020-04-22] MEDS: FUROSEMIDE 20 MG TAB PO SCH (10:42)
--- NOTE | 2020-04-22 12:20 | IPNPDOC ---
Text Note Date of Service The patient was seen on 04/22/20. NOTE Subjective: -Sitting up in chair Physical Examination General: Alert, NAD ENT: Atraumatic, Mucous membr. moist/pink Cardiac: RRR, no mrg Pulm: Right sided crackles, scattered throughout, left side with diminished base and occasional crackles but otherwise improved air movement Telemetry: Sinus Abdomen: Normal bowel sounds, Soft, NTND Extremity: 2+ LE edema, WWP otherwise Skin: Nl turgor and temperature, with purulent drainage out of her epidural site and graft harvesting site also with surrounding erythema Neuro: Normal Speech, 5/5 strength Psych: AOx3 Laboratory Data: WBC 11.5 hgb 9.1 platelets 374 na 137 k 4.4 Cr 0.77 SCx negative 04/22 BCx x 2 NGTD Pleural fluids AFB, fundal and anaerobic culture pending Plan: 1. Left sided moderate pleural effusion with right sided small pleural effusion likely related to recent CABG. CABG 04/08/2020. -Dr. Adair was consulted s/p drainage and chest tube placement -Holding eliquis on lovenox -Oxygen therapy -Incentive spirometry -Pleural fluids AFB, fundal and anaerobic culture pending. On empiric zosyn A fib with RVR noted in ER EKG: resolved after fluid drainage -TTE without tamponade, normal LV size with this mid and distal septal, apical, distal inferolateral wall motion abnormality with overall estimated LVEF around 45-50%. Grade 2 di- -EKG without acute ischemia, trop neg -telemetry -lovenox while eliquis is held -continue home amiodarone, holding home metop 3. HTN. -Holding HTN meds at this time. -Pt received 1 dose of IV lasix 40mg in the ER c/b subsequent hypotension, requiring fluids. Will now dc fluids. 4. CAD with hx of 2 stents placed in 2011 and recent CABG on 04/08/2020. -Contine home aspirin 81mg QD and atorvastatin 40mg QD. Cardiology was consulted, Dr. Sherman onboard 5. acute on chronic HFrEF: -To start los dose lasix at 20mg daily given soft BPs, per cardiology recs 6. DM type 2 with peripheral neuropathy. -Hold home PO meds -Insulin SS ACHS with glucose check ACHS, hypoglycemia protocol. -Cont home gabapentin for peripheral neuropathy 7. Gastroparesis 2/2 DM -Cont home med metoclopramide. -Zofran PRN 8. Gastritis. -Continue protonix 40mg QD. -Continue home sucralfate. 9. Migraine. Cont home med sumatriptan. 10. COPD. -Continue tiotropium and Xopenex scheduled and PRN. -Oxygen therapy DVT prophylaxis: SCD and TEDS/ lovenox VS,Fishbone, I+O VS, Fishbone, I+O Laboratory Tests 04/21/20 14:36 04/21/20 20:56 04/22/20 03:31 Vital Signs Date Time Temp Pulse Resp B/P (MAP) Pulse Ox O2 Delivery O2 Flow Rate FiO2 04/22/20 09:05 95 Nasal Cannula 2.0 04/22/20 08:00 74 16 106/60 (75) 04/22/20 04:00 97.5 I&O- Last 24 Hours up to 6 AM 04/22/20 06:00 Intake Total 2346 ml Output Total 2770 ml Balance -424 ml MUNIR NESS MD Apr 22, 2020 12:20
--- NOTE | 2020-04-22 13:19 | IPN ---
DATE: 04/22/2020 This is now the second hospital day for Mrs. Huggins. She is breathing better today. She is coughing and bringing up clear sputum. She has some pain at the chest tube insertion site, which is being fairly well controlled. Hr vital signs show a maximum temperature (T max) of 99.0, now 97.5 with a heart rate that ranges between 75 and 72 and is sinus rhythm, respiratory rate of 16 to 19 without the use of accessory muscles who is 99% saturated on two liters nasal cannula. She did desaturate to 87% on room air, and she was replaced with two liters nasal cannula. Her blood pressure is ranging now between 106/70 to 89/55. Her intake and output over the past 24 hours has been recorded as 73 in and 1893 out for a negativity of 700 mL. She has put out 1600 mL from the chest tube overnight. Since 12 midnight, she has put out 77 mL. There is no air leak. Weight today is 91.4 kg compared to 91.2 kg yesterday. On physical examination, he has bilateral rales on either side with the left greater than the right. I hear some squeaky noises consistent with the chest tube. Percussion note is full to the diaphragm. Cardiac exam is without murmurs, clicks or gallops, and in particular, I hear no pericardial friction rubs. I cannot feel her point of maximum impulse (PMI). S1, S2 are normal. Her sternotomy wound looks clean and dry and healing well. Abdomen is soft and nontender. Bowel sounds are positive. There is no hepatomegaly. No costovertebral angle tenderness. Extremities show 2+ pretibial edema on the right, which was the venectomy leg and 1+ pretibial edema on the left. There is no differential swelling of the upper extremities. Skin is warm, dry and perfused without cyanosis or mottling, including that of the nail beds and the knees. Neck is supple. There is no jugular venous distention, no subcutaneous emphysema. Trachea is midline. Mouth shows her mucous membranes to be pink and moist. Lips and commissures without lesions. There is no thrush. Eyes show her pupils to be equal and reactive. Extraocular motions intact. Sclerae anicteric. Neurologic shows II-XII intact along with gross motor and gross sensation intact. Gait is not tested. Psychiatric shows her to be awake and alert, oriented times three but with a bit of a depressed mood and affect. Her white count today is 11.5, unchanged from yesterday, with a hemoglobin and hematocrit of 9.1 and 31.2, again unchanged, and a platelet count of 374. Differential shows 67% neutrophils, 20% lymphocytes and 9% monocytes. There are no immature forms. No toxic granulations. Her electrolytes are normal with a marginally high total CO2 of 33, unchanged from yesterday, with a BUN and creatinine of 18 and 0.77. Glucose is 255 with a calcium of 8.1. Her pleural fluid has come back with a pH of 7.47 with a glucose of 124, a total protein of 2.8, and an LDH of 167 with a serum total protein and LDH of 5.4 and 206 respectively. She has 1269 white cells, 67% of which were mononuclear lymphocytes and 32% are neutrophils. This looks like a barely exudative pleural effusion, and is probably more transudative from her heart surgery. The Gram stain showed no organisms and pathology is pending. Her chest x-ray shows a small pneumothorax on the left side after placement of the chest tube. The costophrenic angle can be seen. Heart does not look globular, but does have increased cardiothoracic ratio. In talking with Dr. Sherman, I learned that her procedure was a triple coronary bypass grafting with left internal mammary artery to left anterior descending coronary artery. She had left main disease. It was done on pump. Her preoperative ejection fraction was 30%. Her echocardiogram yesterday showed an improvement in her ejection fraction (EF) to 45-50% and her mid to distal septum is akinetic, as well as her anterior lateral wall. There was no pericardial effusion seen. IMPRESSION: 1. Pleural effusion secondary to on pump open heart surgery. 2. Status post recent coronary artery bypass grafting. 3. Coronary artery disease. 4. Prior myocardial infarction. 5. Diabetes. 6. Hypertension. 7. Prior lobectomy for stage 1 adenocarcinoma of the lung. 8. Systolic failure, improved postoperatively to 40-50% ejection fraction. PLAN AND DISCUSSION: I will keep her chest tube in probably one more day. I am gratified that she only drained 77 mL out the chest tube overnight. It looks mildly exudative but looks most likely transudative. She is going to be treated with very gentle diuresis. Will stop her IV. MTDD
[2020-04-23] VITALS (7 sets, daily range): BP systolic 91–123; BP diastolic 51–78
[2020-04-23] MEDS: LEVALBUTEROL 1.25 MG/0.5 ML CONCENTRATE NEB NEB SCH ×4 (02:17→20:00)
[2020-04-23] MEDS: PIPERACILLIN/TAZOBACTAM SOD 3.375 GM in D5W MINI-BAG PLUS 50 ML IV SCH ×4 (02:17→22:05)
[2020-04-23 05:14] LABS: BASO % 0.3 % (0.0-1.0); EOS # 0.4 10^3/uL (0.0-0.5); EOS % 2.6 % (0.0-3.0); HEMATOCRIT 27.8 % (36.0-47.0); HEMOGLOBIN 8.2 g/dl (12.0-15.5); LYMPH # 1.9 10^3/uL (1.5-5.0); LYMPH % 13.2 % (24.0-44.0); MEAN CORPUSCULAR HEMOGLOBIN 24.2 pg (27.0-33.0); MEAN CORPUSCULAR HGB CONC 29.5 g/dl (32.0-36.5); MONO # 1.2 10^3/uL (0.0-0.8); MONO % 8.3 % (0.0-5.0); NEUTROPHILS # 10.5 10^3/uL (1.5-8.5); NEUTROPHILS % 75.2 % (36.0-66.0); PLATELET COUNT, AUTOMATED 358 10^3/uL (150-450); RED BLOOD COUNT 3.39 10^6/uL (4.00-5.40)
[2020-04-23 05:38] LABS: BLOOD UREA NITROGEN 17 MG/DL (7-18); CALCIUM LEVEL 8.3 MG/DL (8.5-10.1); CARBON DIOXIDE LEVEL 31 MEQ/L (21-32); CHLORIDE LEVEL 96 MEQ/L (98-107); CREATININE FOR GFR 0.65 MG/DL (0.55-1.30); GLOMERULAR FILTRATION RATE > 60.0 (>51); GLUCOSE, FASTING 181 MG/DL (70-100); POTASSIUM SERUM 4.7 MEQ/L (3.5-5.1); SODIUM LEVEL 131 MEQ/L (136-145)
[2020-04-23] MEDS: TIOTROPIUM INHALER/CAPSULE (SPIRIVA) INH SCH (07:19)
[2020-04-23] MEDS: SUCRALFATE 1 GM TAB PO SCH ×4 (07:53→21:58)
[2020-04-23] MEDS: PANTOPRAZOLE 40MG TAB (PROTONIX) PO SCH (07:53)
[2020-04-23] MEDS: HumaLOG INSULIN (NovoLOG) PER UNIT SC SCH ×4 (07:53→21:00)
[2020-04-23] MEDS: METOCLOPRAMIDE 10 MG TAB PO SCH ×2 (07:53→12:41)
[2020-04-23] MEDS: GABAPENTIN 300 MG CAP PO SCH ×3 (08:23→21:58)
[2020-04-23] MEDS: AMIODARONE 200 MG TAB (PACERONE) PO SCH (08:23)
[2020-04-23] MEDS: DOCUSATE SODIUM 100 MG CAP PO SCH ×2 (08:23→21:58)
[2020-04-23] MEDS: FOLIC ACID 1 MG TAB PO SCH (08:23)
[2020-04-23] MEDS: MOM 30ML SUSPENSION UDC PO SCH (08:23)
[2020-04-23] MEDS: FERROUS GLUCONATE 324 MG TAB PO SCH ×2 (08:23→17:01)
[2020-04-23] MEDS: ASPIRIN 81 MG ENTERIC TAB PO SCH (08:23)
[2020-04-23] MEDS: PERCOCET 5MG/325MG TAB PO PRN ×2 (08:23→20:48)
[2020-04-23] MEDS: FUROSEMIDE 20 MG TAB PO SCH (08:23)
--- NOTE | 2020-04-23 08:23 | REP ---
Chest x-ray: Two views. History: Pleural effusion. Comparison chest x-ray: April 22, 2020. Findings: Left chest tube remains in place. There is a small left apical pneumothorax again noted. This is unchanged. Bilateral infiltrates persist and there is blunting of the right lateral pleural angle unchanged. Both pleural angles are blunted posteriorly. Median sternotomy wires and cardiomegaly are again seen. Electronically Signed by Josafat Elkins MD 04/23/2020 08:15 A
[2020-04-23] MEDS: ENOXAPARIN 100MG/1ML SYRINGE (J1650 PER 10MG) SC SCH ×2 (12:42→22:00)
--- NOTE | 2020-04-23 13:22 | IPN ---
DATE: 04/23/2020 Mrs. Joseluis Perez had a relatively good night and day yesterday. She did not have any arrhythmias and there has been relatively minimal output from her chest tube. She still has some soreness around the left shoulder most likely related to the chest tube placement. No sternal pain and she did not have any vomiting. Vital Signs: Blood pressure 91/51 at 4:00 a.m. this morning, heart rate has been in 70s and 80s, sinus rhythm. She has been afebrile. Saturation is 98% on 2 liters of oxygen. Fluid balance yesterday was recorded as positive 800. She had about 110 mL drained from her chest tube and made a little over 2 liters of urine. Weight is 91.5 kg, which is essentially unchanged since yesterday. She is alert, oriented and appropriate. Her jugular venous pulse (JVP) seems to be normal. Lungs are relatively clear, better on the left than right. Heart exam reveals regular rhythm. I do not appreciate any wheezing or gallop. Abdomen: Soft, nontender. She still has quite prominent peripheral edema, at least 2+ to her knees. Laboratories: CBC: WBC count 14.0, hemoglobin 8.2, hematocrit 28, platelet count 358,000. Basic metabolic panel is normal, but for hyponatremia with sodium 131 and glucose 181. ASSESSMENT/PLAN: Mrs. Joseluis Perez is a 54-year-old diabetic female who underwent two-vessel coronary artery bypass graft on April 08 after presentation with myocardial infarction. She came with a large left pleural effusion which is likely related to surgery. The chest tube was placed by Dr. Adair and I expect that it will be discontinued today. She has several other issues. As far as paroxysmal atrial fibrillation is concerned, she seems to be maintaining sinus rhythm on amiodarone. I think that we can continue the current dose of 400 mg daily and as of later this week we can cut it to down to just 200 mg a day in order to complete 4 weeks of administration. Hopefully, this will not be an issue down the road. I do expect that amiodarone contributes to her nausea and possibly the vomiting, even though she reports that she used to have problems with vomiting even prior to open heart surgery, so I have to believe that she likely has a component of diabetic gastroparesis. I would love to get metoclopramide out of her system because it is QT prolonging drug with potential for torsades, especially in combination with amiodarone. The second issue is that of peripheral edema. She undoubtedly has a component of left-sided heart failure, but unfortunately her systolic blood pressure is too low to administer any vasodilators. Will keep her on 20 mg of furosemide. Hopefully, this will be satisfactory late tolerated. There is very likely a component of hypoalbuminemia, her albumin was only 2.4 two days ago. I am hoping that with improved nutrition in the hospital we will see improvement in this regard as well.
--- NOTE | 2020-04-23 13:47 | IPNPDOC ---
Text Note Date of Service The patient was seen on 04/23/20. NOTE Subjective: -Sitting up, no complaints this morning Physical Examination General: Alert, NAD ENT: Atraumatic, Mucous membr. moist/pink Cardiac: RRR, no mrg Pulm: Posterior perla with R sided basilar crackles, left side with diminished base and occasional crackles but otherwise satisfactory air movement Telemetry: Sinus this morning during my exam. (Back in Afib by this afternoon) Abdomen: Normal bowel sounds, Soft, NTND Extremity: 2+ LE edema, WWP otherwise Skin: Nl turgor and temperature, with purulent drainage out of her epidural site and graft harvesting site also with surrounding erythema Neuro: Normal Speech, 5/5 strength Psych: AOx3 Laboratory Data: WBC 14 hgb 8.2 platelets 358 na 131 k 4.7 Cr 0.65 SCx negative 04/22 BCx x 2 NGTD Pleural fluids AFB, fundal and anaerobic culture pending Plan: 1. Left sided moderate pleural effusion with right sided small pleural effusion likely related to recent CABG. CABG 04/08/2020. -Dr. Adair was consulted s/p drainage and chest tube placement that was discontinued this morning -Holding eliquis, on lovenox -Oxygen therapy -Incentive spirometry -Pleural fluids AFB, fundal and anaerobic culture pending. On empiric zosyn A fib with RVR noted in ER EKG: had reverted back to sinus but now back in Afib without poly RVR -TTE without tamponade, normal LV size with this mid and distal septal, apical, distal inferolateral wall motion abnormality with overall estimated LVEF around 45-50%. Grade 2 di- -EKG without acute ischemia, trop neg -telemetry -lovenox while eliquis is held -continue home amiodarone, holding home metop 3. HTN. -Holding HTN meds at this time. -Pt received 1 dose of IV lasix 40mg in the ER c/b subsequent hypotension, requiring fluids. continue 20mg PO lasix QD 4. CAD with hx of 2 stents placed in 2011 and recent CABG on 04/08/2020. -Contine home aspirin 81mg QD and atorvastatin 40mg QD. -Cardiology was consulted, Dr. Sherman onboard 5. acute on chronic HFrEF: -continue lasix at 20mg daily given soft BPs, per cardiology recs -strict I/Os -1.8L/24h fluid restriction -daily weights -2g sodium, in addition to consistent carb diet 6. DM type 2 with peripheral neuropathy. -Hold home PO meds -Insulin SS ACHS with glucose check ACHS, hypoglycemia protocol. -Cont home gabapentin for peripheral neuropathy 7. Gastroparesis 2/2 DM -Cont home med metoclopramide. -Zofran PRN 8. Gastritis. -Continue protonix 40mg QD. -Continue home sucralfate. 9. Migraine. Cont home med sumatriptan. 10. COPD. -Continue tiotropium and Xopenex scheduled and PRN. -Oxygen therapy DVT prophylaxis: SCD and TEDS/ lovenox VS,Fishbone, I+O VS, Fishbone, I+O Laboratory Tests 04/23/20 05:04 Vital Signs Date Time Temp Pulse Resp B/P (MAP) Pulse Ox O2 Delivery O2 Flow Rate FiO2 04/23/20 12:00 98.0 108 20 103/53 (70) 95 Nasal Cannula 2.0 I&O- Last 24 Hours up to 6 AM 04/23/20 06:00 Intake Total 2105 ml Output Total 1855 ml Balance 250 ml MUNIR NESS MD Apr 23, 2020 13:47
[2020-04-23] MEDS ORDERED: SLF 3 ML SYR IV PRN (15:30)
[2020-04-23] MEDS: ONDANSETRON 4MG/2ML VIAL IV PRN ×2 (17:07→20:40)
--- NOTE | 2020-04-23 17:18 | IPN ---
DATE: 04/23/2020 This is now Mrs. Huggins's second hospital day. She is feeling a bit under the weather today. She is complaining of pain in her side but I think there is more to it. She did have some nausea for which she given Zofran. Her vital signs show a maximum temperature (Tmax) of 98.9 with a heart rate that ranges between 82-120 now in atrial fibrillation. She has just been given her dose of amiodarone and she may very well convert back. Respiratory rate is 18-20 without the use of accessory muscles who is 98-94% saturated on 2 liters nasal cannula. Blood pressure is ranging between 123/66-91-51. Her intake and output for the past 24 hours has been recorded as 3168 in and 2337 out for a positivity of 831 mL. She has put out 200 mL from urine output and 112 mL from the chest tube. There is no air leak. She weighs 91.5 kg today compared to 91.4 kg yesterday. On physical examination, she has bilateral coarse rales at both bases which do not clear with coughing. Percussion note is full to the diaphragm. Cardiac exam is without murmurs, clicks or gallops. I cannot feel her point of maximum impulse (PMI). S1 and S2 are normal. Sternotomy incision is healing well. Abdomen is soft, nontender. Bowel sounds are positive. There is no hepatomegaly. No costovertebral angle tenderness. Extremities show 2+ pretibial edema on the either side. There is no differential swelling of the upper extremities. Skin is warm, dry and perfused without cyanosis or mottling, including that of the nail beds and the knees. Neck is supple. There is no jugular venous distention, no subcutaneous emphysema. Trachea is midline. Mouth shows her mucous membranes to be pink and moist. Lips and commissures without lesions. There is no thrush. Eyes show her pupils to be equal and reactive. Extraocular motions are intact. Sclerae anicteric. Neurologic shows II-XII intact along with gross motor and gross sensation intact. Gait is not tested. Psychiatric shows her to be awake and alert, but with a depressed mood and affect. Her white count today is 14.0, up from 11.5 yesterday. Her hemoglobin and hematocrit are 8.2 and 27.8. Platelet count is 358. Differential shows 72% neutrophils, 13% lymphocytes, and 8% monocytes. There are no immature forms. No toxic granulations. Her chemistries show a sodium of 131 with a normalized total CO2. BUN and creatinine are 17 and 0.65 with a glucose of 181 and a calcium of 8.3. I discussed her pleural fluid yesterday looking slight exudative but more likely transudative. Her chest x-ray shows the lung fully expanded to the chest wall except for a very small air space in the left upper hemithorax secondary to the chest tube insertion. She had some alveolar infiltrates most likely consistent with pulmonary edema. Costophrenic angles are sharp. Chest tube is in good place. IMPRESSION: 1. Pleural effusion secondary to on pump open heart surgery. 2. Status post coronary artery bypass grafting. 3. Coronary artery disease. 4. Prior myocardial infarction. 5. Pulmonary edema. 6. Diabetes. 7. Hypertension. 8. 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 9. Systolic dysfunction with a preoperative ejection fraction of 30% and postoperatively 40-50%. PLAN AND DISCUSSION: As she has drained very little out of the chest tube, I will therefore remove it. I will check her chest x-ray tomorrow. If there is no sign of reaccumulation, I will withdraw from the case.
[2020-04-23] MEDS ORDERED: METOPROLOL 5 MG/5 ML VIAL IV STA (20:27)
[2020-04-23] MEDS: SLF 3 ML SYR IV SCH (22:05)
[2020-04-24] VITALS (12 sets, daily range): BP systolic 116–156; BP diastolic 65–88
[2020-04-24] MEDS: LEVALBUTEROL 1.25 MG/0.5 ML CONCENTRATE NEB NEB SCH ×4 (01:21→19:52)
[2020-04-24] MEDS: PIPERACILLIN/TAZOBACTAM SOD 3.375 GM in D5W MINI-BAG PLUS 50 ML IV SCH ×4 (03:31→21:55)
[2020-04-24 05:46] LABS: BASO # 0.1 10^3/uL (0.0-0.2); BASO % 0.5 % (0.0-1.0); EOS # 0.3 10^3/uL (0.0-0.5); EOS % 2.4 % (0.0-3.0); HEMOGLOBIN 7.7 g/dl (12.0-15.5); LYMPH % 19.4 % (24.0-44.0); MEAN CORPUSCULAR HEMOGLOBIN 23.5 pg (27.0-33.0); MEAN CORPUSCULAR HGB CONC 28.5 g/dl (32.0-36.5); MEAN CORPUSCULAR VOLUME 82.3 fl (80.0-96.0); MONO % 9.1 % (0.0-5.0); NEUTROPHILS # 7.2 10^3/uL (1.5-8.5); NEUTROPHILS % 68.1 % (36.0-66.0); PLATELET COUNT, AUTOMATED 335 10^3/uL (150-450); RED BLOOD COUNT 3.28 10^6/uL (4.00-5.40); WHITE BLOOD COUNT 10.5 10^3/uL (4.0-10.0)
[2020-04-24] MEDS: SLF 3 ML SYR IV SCH ×3 (05:58→21:55)
[2020-04-24 06:16] LABS: BLOOD UREA NITROGEN 14 MG/DL (7-18); CALCIUM LEVEL 8.1 MG/DL (8.5-10.1); CARBON DIOXIDE LEVEL 29 MEQ/L (21-32); CHLORIDE LEVEL 96 MEQ/L (98-107); GLOMERULAR FILTRATION RATE > 60.0 (>51); GLUCOSE, FASTING 118 MG/DL (70-100); POTASSIUM SERUM 4.5 MEQ/L (3.5-5.1); SODIUM LEVEL 135 MEQ/L (136-145)
[2020-04-24] MEDS: TIOTROPIUM INHALER/CAPSULE (SPIRIVA) INH SCH (07:31)
[2020-04-24] MEDS: FERROUS GLUCONATE 324 MG TAB PO SCH ×2 (08:01→17:48)
[2020-04-24] MEDS: MOM 30ML SUSPENSION UDC PO SCH (08:01)
[2020-04-24] MEDS: ASPIRIN 81 MG ENTERIC TAB PO SCH (08:02)
[2020-04-24] MEDS: PANTOPRAZOLE 40MG TAB (PROTONIX) PO SCH (08:02)
[2020-04-24] MEDS: FOLIC ACID 1 MG TAB PO SCH (08:02)
[2020-04-24] MEDS: ONDANSETRON 4MG/2ML VIAL IV PRN ×2 (08:02→17:47)
[2020-04-24] MEDS: SUCRALFATE 1 GM TAB PO SCH ×4 (08:02→21:55)
[2020-04-24] MEDS: DOCUSATE SODIUM 100 MG CAP PO SCH ×2 (08:02→21:55)
[2020-04-24] MEDS: FUROSEMIDE 20 MG TAB PO SCH (08:03)
[2020-04-24] MEDS: GABAPENTIN 300 MG CAP PO SCH ×3 (08:03→21:55)
[2020-04-24] MEDS: HumaLOG INSULIN (NovoLOG) PER UNIT SC SCH ×4 (08:04→21:00)
--- NOTE | 2020-04-24 08:11 | REP ---
Chest x-ray: Two views. History: Pleural effusion. Comparison chest x-ray: April 23, 2020. Findings: In the interval since yesterday's chest radiograph, the left chest tube has been withdrawn. There is slight blunting of the posterior pleural angles and mild pleural thickening is seen on the left. A tiny left apical pneumothorax persists decreased from the prior study. Patchy bilateral infiltrates are again noted unchanged. Cardiomegaly with median sternotomy wires are again seen. Electronically Signed by Josafat Elkins MD 04/24/2020 08:03 A
[2020-04-24] MEDS: AMIODARONE 200 MG TAB (PACERONE) PO SCH ×2 (08:30→17:48)
[2020-04-24] MEDS ORDERED: MIRALAX *UNIT DOSE* 17GM PACKET PO SCH (09:00)
[2020-04-24] MEDS: ENOXAPARIN 100MG/1ML SYRINGE (J1650 PER 10MG) SC SCH (10:32)
--- NOTE | 2020-04-24 11:15 | IPN ---
DATE: 04/24/2020 Mrs. Huggins had the chest tube removed by Dr. Adair yesterday. the post chest x-ray today is pending. She does not feel well and complains about nausea. She also complains about not getting enough to drink. Denies much of chest pain. Feels that she is still short of breath. She certainly looks depressed and has a very negative demeanor, but actually looks lot more comfortable than she did yesterday. Blood pressure 123/68 and has been in similar range throughout the day. Heart rate in 80s. She was in atrial fibrillation yesterday for most of the day, but then converted over morning hours back to sinus rhythm. Saturation is 100% on 2 liters of oxygen by nasal cannula. Fluid balance yesterday was reported as negative 600. Weight is 93.3, but it is on different scale, so may not be quite corresponding to admission numbers. She is alert and oriented appropriate. Jugular venous pulse (JVP) does not look high. Lungs sound clear. Good air movement. No wheezing. Heart exam regular rhythm. No gallop or rub. Abdomen is soft, nontender. Extremities still have about 1+ edema but much improved since yesterday. LABORATORIES: WBC count 10.5, hemoglobin 7.7, hematocrit 27, platelet count 335,000, and basic metabolic panel is essentially normal but for mild hyponatremia at 135. ASSESSMENT/PLAN: Mrs. Joseluis Perez is a 54-year-old diabetic female who has remote history of percutaneous coronary intervention (PCI) to left circumflex and underwent coronary artery bypass grafting on 04/08/2020 after she presented with acute coronary syndrome and critical left main disease. Her postoperative ejection fraction (EF) is around 40-45%. She had large pleural effusion on the left that was drained by Dr. Adair. The chest tube was removed earlier today and chest x-ray is pending. She still looks slightly volume overloaded and I would continue her low-dose diuretic. Unfortunately, she does not feel well and has a lot of nausea which I suspect is principally related to diabetic gastroparesis plus the use of amiodarone. I am going to change the dosing of amiodarone to 200 twice a day and we will order it to be given post food, but overall I have a feeling that she is moving the right direction. I am not going to put her back on any angiotensin-converting enzyme (ALEX) inhibitor angiotensin receptor rosa (ARB) because her blood pressure was very soft, but potentially we can restart the medication tomorrow.
[2020-04-24] MEDS ORDERED: MIRALAX *UNIT DOSE* 17GM PACKET PO PRN (16:45)
--- NOTE | 2020-04-24 20:17 | IPNPDOC ---
Date Seen The patient was seen on 04/24/20. Progress Note SUBJECTIVE: + nausea, amiodarone dose decreased. Occult blood + with drop in H/H. Stopped enoxaparin, ASA. Transfusing 1 unit PRBC, f/u CBC Q6hrs. Denies abdominal pain, chest pain, fevers, lightheadedness and chills. OBJECTIVE: VITAL SIGNS: please see below PHYSICAL EXAMINATION: General: Alert, NAD ENT: Atraumatic, Mucous membr. moist/pink Cardiac: RRR, no mrg Pulm: Posterior perla with R sided basilar crackles, left side with diminished base and occasional crackles Abdomen: Normal bowel sounds, Soft, NTND Extremity: 2+ LE edema, WWP otherwise Skin: Nl turgor and temperature, with purulent drainage out of her epidural site and graft harvesting site also with surrounding erythema Neuro: Normal Speech, 5/5 strength Psych: AOx3 LABORATORY: Please see below MICROBIOLOGY: SCx negative 04/22 BCx x 2 NGTD Pleural fluids AFB, fundal and anaerobic culture pending Plan: 1. GI bleed, acute. Possibly from high dose lovenox recently started on. -HD stable -BRBPR, small amount with morning stool. Patient does admit to some straining with defecation; however, H/H has been steadily declining -Will stop AC (lovenox stopped, keep off eliquis and ASA for now) and see if resolves. -F/u CBC Q6hrs -Transfusing one unit PRBC today, f/u post transfusion CBC -Goal Hgb >9-10 due to recent cardiac surgery. -PPI IV BID -If bleeding worsens, consider NPO and surgical consult. 2. Left sided moderate pleural effusion with right sided small pleural effusion likely related to recent CABG. CABG 04/08/2020. -Dr. Adair was consulted s/p drainage and chest tube placement that was discontinued this morning -Oxygen therapy with 2-3 L nC -Incentive spirometry -Pleural fluids AFB, fundal and anaerobic culture pending. -C/w Zosyn, day 4 -Lasix low dose daily 3. A fib with RVR noted in ER EKG: had reverted back to sinus but now back in Afib rate controlled -TTE without tamponade, normal LV size with this mid and distal septal, apical, distal inferolateral wall motion abnormality with overall estimated LVEF around 45-50%. Grade 2 di- -EKG without acute ischemia, trop neg -telemetry -Stopped lovenox and eliquis due to GI bleed. -Amiodarone dose decreased, holding home metop 4. HTN. -Holding home HTN meds at this time. -Continue 20mg PO lasix QD 5. CAD with hx of 2 stents placed in 2011 and recent CABG on 04/08/2020. -Stopped ASA and AC due to bleed -Contine home atorvastatin 40mg QD. -Cardiology was consulted, Dr. Sherman onboard 6. Acute on chronic HFrEF: -continue lasix at 20mg daily given soft BPs, per cardiology recs -strict I/Os -1.8L/24h fluid restriction -daily weights -2g sodium, in addition to consistent carb diet 7. DM type 2 with peripheral neuropathy. -Hold home PO meds -Insulin SS ACHS with glucose check ACHS, hypoglycemia protocol. -Cont home gabapentin for peripheral neuropathy 8. Gastroparesis 2/2 DM -Cont home med metoclopramide. -Zofran PRN 9. Gastritis. -Continue protonix 40mg QD. -Continue home sucralfate. 10. Migraine. Cont home med sumatriptan. 11. COPD. -Continue tiotropium and Xopenex scheduled and PRN. -Oxygen therapy 12. DVT prophylaxis: SCD and TEDS. d/lang anticoagulation due to GI bleed. DISPOSITION: C/w treatment above. med/surg VS, I&O, 24H, Fishbone Vital Signs/I&O Vital Signs Date Time Temp Pulse Resp B/P (MAP) Pulse Ox O2 Delivery O2 Flow Rate FiO2 04/24/20 19:26 98.3 88 20 130/78 95 Nasal Cannula 2.0 I&O- Last 24 Hours up to 6 AM 04/24/20 05:59 Intake Total 750 ml Output Total 1395 ml Balance -645 ml Laboratory Data 24H LABS Laboratory Tests 2 04/23/20 21:42: Bedside Glucose (Misc Panel) 153H 04/24/20 04:58: Immature Granulocyte % (Auto) 0.5, Neutrophils (%) (Auto) 68.1H, Lymphocytes (%) (Auto) 19.4L, Monocytes (%) (Auto) 9.1H, Eosinophils (%) (Auto) 2.4, Basophils (%) (Auto) 0.5, Neutrophils # (Auto) 7.2, Lymphocytes # (Auto) 2.0, Monocytes # (Auto) 1.0H, Eosinophils # (Auto) 0.3, Basophils # (Auto) 0.1, Nucleated Red Blood Cells % (auto) 0.2H, Anion Gap 10, Glomerular Filtration Rate > 60.0, Carmelo cium Level 8.1L 04/24/20 12:01: Bedside Glucose (Misc Panel) 214H 04/24/20 17:14: Bedside Glucose (Misc Panel) 190H CBC/BMP Laboratory Tests 04/24/20 04:58 Microbiology Microbiology 04/24/20 Stool Occult Blood (MODESTO) - Final, Complete 04/22/20 Gram Stain - Final, Complete 04/22/20 Sputum Culture - Final, Complete 04/21/20 Blood Culture - Preliminary, Resulted No Growth after 48 hours. All Specime... 04/21/20 Blood Culture - Preliminary, Resulted No Growth after 48 hours. All Specime... 04/21/20 Acid Fast Stain, Received Pending 04/21/20 Mycobacterial Culture, Received Pending 04/21/20 Fungal Smear, Received Pending 04/21/20 Fungal Culture, Received Pending 04/21/20 Body Fluid Culture - Final, Complete 04/21/20 Gram Stain - Final, Complete 04/21/20 Anaerobic Culture - Final, Complete Current Medications Current Medications Medications (Trade) Dose Ordered Sig/Lisa Route PRN Reason Start Time Stop Time Status Last Admin Dose Admin Acetaminophen (Tylenol Tab) 650 mg Q6HP PRN PO T > 101.5 or TUCKER 04/21/20 18:30 Acetaminophen/ Hydrocodone Bitart (Allison, Anexsia 5/325) 1 tab Q3H PRN PO MILD PAIN (PS 1-4) 04/21/20 18:30 Amiodarone HCl (Pacerone, Cordarone) 200 mg BID@0830,1830 PO 04/24/20 08:30 04/24/20 17:48 Amiodarone HCl (Pacerone, Cordarone) 400 mg DAILY PO 04/22/20 09:00 04/24/20 08:20 DC 04/23/20 08:23 Aspirin (Ecotrin) 81 mg DAILY PO 6/28/20 09:00 04/24/20 15:22 DC 04/24/20 08:02 Bisacodyl (Dulcolax Suppository) 10 mg Q4HP PRN MD CONSTIPATION 04/21/20 18:30 Dextrose (Dextrose 50%) 25 ml ASDIRECTED PRN IV SEE LABEL COMMENTS 04/21/20 19:00 Dextrose/Sodium Chloride 1,000 ml @ 75 mls/hr [id number] IV 04/21/20 19:00 04/22/20 10:17 DC 04/21/20 21:05 Docusate Sodium (Colace) 100 mg BID PO 04/21/20 21:00 04/24/20 08:02 Enoxaparin Sodium (Lovenox) 40 mg DAILY@2100 SC 04/21/20 21:00 04/22/20 09:57 DC Enoxaparin Sodium (Lovenox) 90 mg Q12H SC 04/22/20 10:00 04/24/20 11:58 DC 04/24/20 10:32 Ferrous Gluconate (Fergon) 324 mg BIDWM PO 04/22/20 08:00 04/24/20 17:48 Folic Acid (Folic Acid) 1 mg DAILY PO 04/21/20 09:00 04/24/20 08:02 Furosemide (Lasix) 20 mg DAILY PO 04/22/20 09:00 04/24/20 08:03 Gabapentin (Neurontin) 600 mg TID PO 04/21/20 21:00 04/24/20 16:03 Glucagon (Glucagon) 1 mg ASDIRECTED PRN SC SEE LABEL COMMENTS 04/21/20 19:00 Glucose (Glucose) 16 GM ASDIRECTED PRN PO SEE LABEL COMMENTS 04/21/20 19:00 Home Med (Med Rec Complete!) ASDIRECTED XX 04/21/20 18:15 04/21/20 18:05 DC Insulin Detemir (Levemir Insulin) 35 units QHS SC 04/24/20 21:00 Insulin Human Lispro (HumaLOG INSULIN) SEE PROTOCOL TABLE AC SC 04/22/20 07:30 04/24/20 17:47 Insulin Human Lispro (HumaLOG INSULIN) SEE PROTOCOL TABLE Q6H SC 04/21/20 18:00 04/21/20 20:31 DC Insulin Human Lispro (HumaLOG INSULIN) SEE PROTOCOL TABLE QHS SC 04/21/20 21:00 Levalbuterol HCl (Xopenex Neb) 1.25 mg Q2HP PRN NEB WHEEZING 04/21/20 18:30 04/22/20 07:48 Levalbuterol HCl (Xopenex Neb) 1.25 mg RQ6H NEB 04/21/20 20:00 04/24/20 01:21 Magnesium Hydroxide (Milk Of Magnesia) 30 ml DAILY PO 04/22/20 09:00 04/24/20 08:01 Metoclopramide HCl (Reglan) 10 mg QID PO 04/21/20 21:00 04/23/20 13:42 DC 04/23/20 12:41 Metoprolol Tartrate (Lopressor) 5 mg STAT STAT IV 04/23/20 20:27 04/23/20 20:30 DC 04/23/20 20:42 Midazolam HCl (Versed) 2 mg STAT STAT IV 04/21/20 19:30 04/21/20 20:28 DC 04/21/20 19:30 Ondansetron HCl (ZOFRAN INJection) 4 mg Q4HP PRN IV NAUSEA OR VOMITING 04/21/20 18:15 04/24/20 17:47 Oxycodone/ Acetaminophen (Percocet 5mg/ 325mg Tablet) 1 tab Q4H PRN PO MODERATE PAIN (PS 5-7) 04/21/20 18:30 Oxycodone/ Acetaminophen (Percocet 5mg/ 325mg Tablet) 2 tab Q4H PRN PO SEVERE PAIN (PS 8-10) 04/21/20 18:30 04/23/20 20:48 Pantoprazole Sodium (Protonix) 40 mg DAILY PO 04/22/20 09:00 04/24/20 08:02 Piperacillin Sod/ Tazobactam Sod 3.375 gm/Dextrose 50 ml @ 50 mls/hr Q6H IV 04/21/20 21:00 04/24/20 16:03 Polyethylene Glycol (Miralax) 1 pkt DAILY PO 04/24/20 09:00 04/24/20 16:51 DC 04/24/20 16:03 Polyethylene Glycol (Miralax) 1 pkt DAILYPRN PRN PO CONSTIPATION 04/24/20 16:45 Sodium Chloride (Saline Lock Flush) 2 ml ASDIRECTED PRN IV SEE LABEL COMMENTS 04/23/20 15:30 Sodium Chloride (Saline Lock Flush) 2 ml SLF IV 04/23/20 22:00 04/24/20 14:16 Sucralfate (Carafate) 1 gm QID PO 04/21/20 21:00 04/24/20 16:04 Sumatriptan Succinate (Imitrex) 50 mg DAILY PRN PO MIGRAINE 04/21/20 19:00 Tiotropium [place] (Spiriva Handihaler) 1 inhalation DAILY@08 INH 04/21/20 22:00 04/24/20 07:31 Allergies Coded Allergies: FISH (Verified Allergy, Unknown, 04/21/20) Kathleen Ren MD Apr 24, 2020 20:16
[2020-04-24] MEDS: LEVEMIR (INSULIN DETEMIR) 1 UNITS/0.01ML SC SCH (21:54)
[2020-04-24] MEDS: PANTOPRAZOLE 40MG VIAL (C9113 PER 1) IV SCH (21:54)
[2020-04-24 22:11] LABS: HEMATOCRIT 30.9 % (36.0-47.0); HEMOGLOBIN 9.2 g/dl (12.0-15.5); MEAN CORPUSCULAR HGB CONC 29.8 g/dl (32.0-36.5); MEAN CORPUSCULAR VOLUME 80.7 fl (80.0-96.0); PLATELET COUNT, AUTOMATED 332 10^3/uL (150-450); RED BLOOD COUNT 3.83 10^6/uL (4.00-5.40); WHITE BLOOD COUNT 9.8 10^3/uL (4.0-10.0)
[2020-04-25] VITALS: BP 143/78
[2020-04-25] MEDS: LEVALBUTEROL 1.25 MG/0.5 ML CONCENTRATE NEB NEB SCH ×4 (01:08→19:50)
[2020-04-25] MEDS: PIPERACILLIN/TAZOBACTAM SOD 3.375 GM in D5W MINI-BAG PLUS 50 ML IV SCH ×4 (03:28→20:33)
[2020-04-25 04:00] VITALS: BP 158/96
[2020-04-25 04:28] LABS: HEMATOCRIT 28.8 % (36.0-47.0); HEMOGLOBIN 8.7 g/dl (12.0-15.5); MEAN CORPUSCULAR HEMOGLOBIN 24.3 pg (27.0-33.0); MEAN CORPUSCULAR HGB CONC 30.2 g/dl (32.0-36.5); MEAN CORPUSCULAR VOLUME 80.4 fl (80.0-96.0); PLATELET COUNT, AUTOMATED 309 10^3/uL (150-450); RED BLOOD COUNT 3.58 10^6/uL (4.00-5.40); WHITE BLOOD COUNT 8.6 10^3/uL (4.0-10.0)
[2020-04-25 04:44] LABS: BLOOD UREA NITROGEN 11 MG/DL (7-18); CALCIUM LEVEL 8.3 MG/DL (8.5-10.1); CARBON DIOXIDE LEVEL 33 MEQ/L (21-32); CHLORIDE LEVEL 98 MEQ/L (98-107); CREATININE FOR GFR 0.61 MG/DL (0.55-1.30); GLOMERULAR FILTRATION RATE > 60.0 (>51); GLUCOSE, FASTING 130 MG/DL (70-100); POTASSIUM SERUM 4.2 MEQ/L (3.5-5.1); SODIUM LEVEL 137 MEQ/L (136-145)
[2020-04-25] MEDS: SLF 3 ML SYR IV SCH ×3 (05:31→22:05)
--- NOTE | 2020-04-25 06:14 | ECGEPIP ---
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
[2020-04-25] MEDS: TIOTROPIUM INHALER/CAPSULE (SPIRIVA) INH SCH (07:31)
[2020-04-25 08:00] VITALS: BP 123/68
--- NOTE | 2020-04-25 08:26 | REP ---
Clinical: Pleural effusion. Technique: PA and lateral. Comparison: 04/24/2020, 04/22/2020. Findings: Diffuse bilateral alveolar and interstitial infiltrates along with small right and moderate left pleural effusions are noted.. The previously placed left chest tube has been removed. Skeletal structures are intact. Impression: 1. Diffuse bilateral multifocal infiltrates. 2. Small/moderate pleural effusions (left greater than right) with the left effusion having slightly increased since the removal of the chest tube. Electronically Signed by Clinton Correa MD 04/25/2020 08:17 A
[2020-04-25] MEDS: MOM 30ML SUSPENSION UDC PO SCH (09:08)
[2020-04-25] MEDS: GABAPENTIN 300 MG CAP PO SCH ×3 (09:08→20:31)
[2020-04-25] MEDS: HumaLOG INSULIN (NovoLOG) PER UNIT SC SCH ×4 (09:08→20:33)
[2020-04-25] MEDS: PANTOPRAZOLE 40MG VIAL (C9113 PER 1) IV SCH ×2 (09:08→20:33)
[2020-04-25] MEDS: FUROSEMIDE 20 MG TAB PO SCH (09:09)
[2020-04-25] MEDS: FOLIC ACID 1 MG TAB PO SCH (09:09)
[2020-04-25] MEDS: SUCRALFATE 1 GM TAB PO SCH ×4 (09:09→20:31)
[2020-04-25] MEDS: AMIODARONE 200 MG TAB (PACERONE) PO SCH ×2 (09:09→17:35)
[2020-04-25] MEDS: DOCUSATE SODIUM 100 MG CAP PO SCH ×2 (09:09→20:32)
[2020-04-25] MEDS: ASPIRIN 81 MG ENTERIC TAB PO SCH (09:09)
[2020-04-25] MEDS: FERROUS GLUCONATE 324 MG TAB PO SCH ×2 (09:09→17:35)
--- NOTE | 2020-04-25 09:23 | IPN ---
DATE: 04/25/2020 Nicky is seen in the PCU rounding for the hospitalist. She feels less short of breath. She seems depressed and not very talkative today. No chest pain or palpitations. She is in sinus rhythm per telemetry nurse. PHYSICAL EXAMINATION: 158/96. Respiratory rate 20. 97% oxygen saturation. General Appearance: Quiet, withdrawn. Poor eye contact. HEENT: Unremarkable. No jugular venous distention (JVD). Lungs: Decreased breath sounds both posterior perla. Heart: Regular rate and rhythm. No murmur. Abdomen: Soft. Nontender. No masses. 1+ peripheral edema. No clubbing or cyanosis. LABS: Hemoglobin 8.7 and was 9.2 last evening. Platelets are 309. Sodium 137, potassium 4.2, BUN 11, creatinine 0.6, glucose 130. Blood sugars have generally been below 200. IMPRESSION: 1. Gastrointestinal (GI) bleed. Probably lower GI bleed. She has had no recurrence of this since the Lovenox was discontinued. Hemoglobin fairly stable. She has serial CBCs ordered. 2. Left sided pleural effusion. Status post chest tube drainage. Chest tube was removed two days. Dr. Adair has been following her. Cultures are negative. Still on Zosyn. 3. Atrial fibrillation. Converted to sinus rhythm. On amiodarone. Being seen by cardiology. 4. Hypertensive heart disease. Blood pressure is well controlled. 5. Coronary artery disease. Status post coronary artery bypass graft (CABG) 04/08/2020. Continue atorvastatin. Aspirin is held due to the bleeding. If she is not bleeding by tomorrow, should consider restarting this. 6. Diabetes with peripheral neuropathy. 7. Question of reactive depression. Need to monitor for worsening of this. She is quite withdrawn today, but says she did not sleep well, which might be a factor.
[2020-04-25 12:00] VITALS: BP 128/78
[2020-04-25 14:14] LABS: HEMATOCRIT 30.2 % (36.0-47.0); HEMOGLOBIN 8.9 g/dl (12.0-15.5); MEAN CORPUSCULAR HEMOGLOBIN 24.1 pg (27.0-33.0); MEAN CORPUSCULAR HGB CONC 29.5 g/dl (32.0-36.5); MEAN CORPUSCULAR VOLUME 81.6 fl (80.0-96.0); PLATELET COUNT, AUTOMATED 313 10^3/uL (150-450); WHITE BLOOD COUNT 8.2 10^3/uL (4.0-10.0)
[2020-04-25 16:00] VITALS: BP 111/67
[2020-04-25 20:00] VITALS: BP 106/76
[2020-04-25 20:19] LABS: HEMATOCRIT 31.3 % (36.0-47.0); HEMOGLOBIN 9.3 g/dl (12.0-15.5); MEAN CORPUSCULAR HEMOGLOBIN 24.2 pg (27.0-33.0); MEAN CORPUSCULAR HGB CONC 29.7 g/dl (32.0-36.5); MEAN CORPUSCULAR VOLUME 81.5 fl (80.0-96.0); PLATELET COUNT, AUTOMATED 326 10^3/uL (150-450); RED BLOOD COUNT 3.84 10^6/uL (4.00-5.40); WHITE BLOOD COUNT 7.9 10^3/uL (4.0-10.0)
[2020-04-25] MEDS: ATORVASTATIN 20 MG TAB PO SCH (20:31)
[2020-04-25] MEDS: LOSARTAN 25 MG TAB PO SCH (20:32)
[2020-04-25] MEDS: NORCO, ANEXSIA 5/325MG TABLET (HYDROcodone/ACETAMINOPHEN) PO PRN (20:32)
[2020-04-25] MEDS: LEVEMIR (INSULIN DETEMIR) 1 UNITS/0.01ML SC SCH (20:33)
[2020-04-26] VITALS: BP 109/67
[2020-04-26] MEDS: NORCO, ANEXSIA 5/325MG TABLET (HYDROcodone/ACETAMINOPHEN) PO PRN (01:11)
[2020-04-26] MEDS: LEVALBUTEROL 1.25 MG/0.5 ML CONCENTRATE NEB NEB SCH ×4 (01:59→20:00)
[2020-04-26] MEDS: PIPERACILLIN/TAZOBACTAM SOD 3.375 GM in D5W MINI-BAG PLUS 50 ML IV SCH ×3 (03:43→15:12)
[2020-04-26 04:00] VITALS: BP 115/76
[2020-04-26] MEDS: SLF 3 ML SYR IV SCH ×3 (04:57→20:25)
[2020-04-26 05:09] LABS: HEMATOCRIT 30.5 % (36.0-47.0); HEMOGLOBIN 8.8 g/dl (12.0-15.5); MEAN CORPUSCULAR HEMOGLOBIN 23.8 pg (27.0-33.0); MEAN CORPUSCULAR HGB CONC 28.9 g/dl (32.0-36.5); MEAN CORPUSCULAR VOLUME 82.7 fl (80.0-96.0); PLATELET COUNT, AUTOMATED 288 10^3/uL (150-450); RED BLOOD COUNT 3.69 10^6/uL (4.00-5.40); WHITE BLOOD COUNT 6.9 10^3/uL (4.0-10.0)
[2020-04-26 05:39] LABS: BLOOD UREA NITROGEN 10 MG/DL (7-18); CALCIUM LEVEL 8.2 MG/DL (8.5-10.1); CARBON DIOXIDE LEVEL 33 MEQ/L (21-32); CHLORIDE LEVEL 99 MEQ/L (98-107); CREATININE FOR GFR 0.66 MG/DL (0.55-1.30); GLOMERULAR FILTRATION RATE > 60.0 (>51); GLUCOSE, FASTING 164 MG/DL (70-100); POTASSIUM SERUM 4.5 MEQ/L (3.5-5.1); SODIUM LEVEL 135 MEQ/L (136-145)
[2020-04-26 06:43] LABS: FERRITIN 38 NG/ML (8-252); IRON (FE) 17 UG/DL (50-170); PERCENT SATURATION 7.5 % (13.2-45.0); TOTAL IRON BINDING CAPACITY 226 UG/DL (250-450)
[2020-04-26] MEDS: TIOTROPIUM INHALER/CAPSULE (SPIRIVA) INH SCH (07:16)
[2020-04-26 08:00] VITALS: BP 142/84
--- NOTE | 2020-04-26 08:02 | REP ---
Clinical: Pleural effusion. Comparison: 04/25/2020. Findings: Mediastinum and cardiac silhouette stable. Moderate pleural effusions and lower lobe opacities (left greater than right) are similar to prior examination. No pneumothorax. Skeletal structures intact. Impression: Moderate pleural effusions and basilar opacities (left greater than right) similar to prior examination. Electronically Signed by Clinton Correa MD 04/26/2020 07:55 A
--- NOTE | 2020-04-26 08:39 | IPN ---
DATE: 04/26/2020 Mrs. Perez was not particularly interested in talking to me. She was on hold for a phone call from her family and consequently was very reluctant to communicate, but nevertheless she admits that she is feeling better. Her breathing is a little bit better. She is not as nauseated. She still complains about shortness of breath though. Chest pain is also still present even though it is improving. It is at the site of her prior chest tube. Vital Signs: Blood pressure 115/76. Heart rate has been in 70s and 80s. She is afebrile. Saturation is 98% on 2 liters. Weight was recorded 93.9, which is slightly up from admission. She made 1600 mL of urine yesterday. She is certainly alert and oriented. Her jugular venous pulse (JVP) still does not look very high. Lungs though are diminished at the bases. It appears to me by physical exam that her left pleural effusion likely returned. Heart exam reveals regular rhythm. No obvious gallop, rub or murmur. Abdomen is obese, but soft and she still has 1-2+ edema to her knees. Laboratories: CBC - WBC count 6.9, hemoglobin 8.8, hematocrit 30.5, platelet count 288,000. Basic metabolic panel is essentially normal, but for mild hyponatremia with sodium 135. Her creatinine is 0.7 and glucose 164. Her iron level is low. Chest x-ray was obtained earlier today and is currently pending. ASSESSMENT/PLAN: Mrs. Joseluis Perez is a 54-year-old female who underwent coronary artery bypass grafting on April 10 after presenting with acute coronary syndrome and having had left main disease on coronary angiography. She received MORRISON to LAD, SVG to obtuse marginal. Her preoperative ejection fraction (EF) was approximately 30%, but based on echo performed in our facility it already improved and she has approximately moderate left ventricular systolic dysfunction currently. Her main presenting factor was large left pleural effusion that is likely postsurgical and was drained by Dr. Adair. Unfortunately, there is likely some reaccumulation, even though I think at this point we can continue medical management. She initially was quite hypotensive and sensitive to diuretics, but I gave her a low-dose ARB last night and she seemed to have tolerated it well. Consequently, I believe we can somewhat increase the dose of diuretics. I do believe that she is on the road to recovery as far as the heart failure is concerned. The second problem was postoperative atrial fibrillation. She had had several episodes as an outpatient and during her hospitalization at [facility] ([facility] She continues to have episodes of atrial fibrillation here. She went into atrial fibrillation yesterday afternoon, but fortunately later in the day converted back to sinus rhythm, likely during sleep. I will continue amiodarone in the current dose. Unfortunately, the anticoagulation was discontinued because she was dropping her hemoglobin and she was guaiac positive. Hopefully, as time goes and she continues to recover from open heart surgery and with ongoing amiodarone use, she will maintain sinus rhythm. At this point, I am going to sign off her care. Dr. Stevenson will be covering on the weekend. If you have any questions, please contact him for further assistance. I plan to see the patient on an outpatient basis.
[2020-04-26] MEDS: PANTOPRAZOLE 40MG VIAL (C9113 PER 1) IV SCH ×2 (09:00→20:24)
[2020-04-26] MEDS: MOM 30ML SUSPENSION UDC PO SCH (09:00)
[2020-04-26] MEDS: HumaLOG INSULIN (NovoLOG) PER UNIT SC SCH ×4 (09:01→20:28)
[2020-04-26] MEDS: GABAPENTIN 300 MG CAP PO SCH ×3 (09:01→20:27)
[2020-04-26] MEDS: FUROSEMIDE 40 MG TAB PO SCH (09:01)
[2020-04-26] MEDS: FERROUS GLUCONATE 324 MG TAB PO SCH ×2 (09:01→17:35)
[2020-04-26] MEDS: DOCUSATE SODIUM 100 MG CAP PO SCH ×2 (09:01→20:27)
[2020-04-26] MEDS: FOLIC ACID 1 MG TAB PO SCH (09:02)
[2020-04-26] MEDS: SUCRALFATE 1 GM TAB PO SCH ×4 (09:02→20:27)
[2020-04-26] MEDS: AMIODARONE 200 MG TAB (PACERONE) PO SCH ×2 (09:02→17:36)
[2020-04-26] MEDS: ASPIRIN 81 MG ENTERIC TAB PO SCH (09:02)
[2020-04-26 12:00] VITALS: BP 144/86
[2020-04-26 16:00] VITALS: BP 109/78
--- NOTE | 2020-04-26 19:29 | IPNPDOC ---
Text Note Date of Service The patient was seen on 04/26/20. NOTE Hospitalist Progress Note Subjective: The patient was sitting upright on the edge of the bed when I came to evaluate her this morning. She reports that she still does have some minimal pain at the site of the previous chest tube, but it appears to be significantly improved from prior. Nevertheless, she still does continue to complain of shortness of breath, and continues to require supplemental oxygen, she is not normally on this at home. Objective: General: Awake, alert, oriented 3. She is quite pleasant interact with. HEENT: Head normocephalic, atraumatic, sclera are nonicteric. Hearing is grossly intact to conversation. Respiratory: Perhaps somewhat diminished at the bases, good air flow at the apices. Cardiovascular: Regular rate and rhythm, with no rubs, gallops, or murmur. Dr fouzia in place at the site of previous chest tube, no soiling or drainage noted. Abdomen: Soft, nontender, nondistended, no hepatosplenomegaly appreciated. Bowel sounds present. Extremities: 2+ pulses in the radial and dorsalis pedis bilaterally. No evidence of clubbing or cyanosis. 2+ pitting edema to the knees bilaterally. Assessment/Plan: 1. Acute GI bleed H&H continues to be stable since discontinuing Lovenox. She does not report any additional blood in her stools at this time. She continues to be stable, perhaps we'll reinitiate aspirin tomorrow. 2. Left-sided pleural effusion, likely secondary to recent CABG Drain by cardiothoracic surgery, and drain since been removed, there are no longer on the case. Shortness of breath continues to improve, she is weaning down on the oxygen, but still requires it. She was empirically started on Zosyn (04/21/2020), she has not had any fever, no white count, the fluid in her thoracic cavity appeared to be more transudative than exudative, and cultures of her blood, sputum, and thoracic cavity fluid are all negative. It is unlikely that this is secondary to an infectious cause, but more than likely related to her recent triple coronary artery bypass graft surgery. We will discontinue Zosyn at this time. 3. Recurrent episodes of atrial fibrillation with RVR 4. Acute on chronic heart failure with reduced ejection fraction 5. Hypertension 6. Coronary artery disease with history of 2 stents placed in 2011, and recent CABG X3 on 04/08/2020 Input from cardiology is greatly appreciated. They continue to adjust her doses of amiodarone, beta rosa, antihypertensives. Management per their re commendations. 7. Diabetes mellitus type 2 with peripheral neuropathy Continue to hold home oral medications. Continue with insulin sliding scale before meals and at bedtime. Continue with home dose of gabapentin for peripheral neuropathy 8. Gastroparesis secondary to diabetes mellitus Continue home dose of Reglan, Zofran as needed 9. Gastritis with GI bleed Continue Protonix and sucralfate 10. Migraine Continue home dose of sumatriptan as needed 11. COPD Continue tiotropium and Xopenex scheduled and when necessary We continue to wean oxygen 11. DVT prophylaxis Continue with teds and sequentials at this time. Anticoagulation has been discontinued due to GI bleed. VS,Fishbone, I+O VS, Fishbone, I+O Laboratory Tests 04/25/20 20:10 04/26/20 04:50 Vital Signs Date Time Temp Pulse Resp B/P (MAP) Pulse Ox O2 Delivery O2 Flow Rate FiO2 04/26/20 16:00 2.0 04/26/20 16:00 97.8 104 20 109/78 (88) 98 Nasal Cannula I&O- Last 24 Hours up to 6 AM 04/26/20 06:00 Intake Total 1710 ml Output Total 1850 ml Balance -140 ml ISABELA DUARTE DO Apr 26, 2020 19:29
[2020-04-26 20:00] VITALS: BP 105/69
[2020-04-26] MEDS: LEVEMIR (INSULIN DETEMIR) 1 UNITS/0.01ML SC SCH (20:25)
[2020-04-26] MEDS: LOSARTAN 25 MG TAB PO SCH (20:29)
[2020-04-26] MEDS: ATORVASTATIN 20 MG TAB PO SCH (20:31)
[2020-04-27] VITALS (10 sets, daily range): BP systolic 115–153; BP diastolic 72–80; O2SAT 94–97
[2020-04-27] MEDS: ACETAMINOPHEN TAB 650MG DOSE (2X325MG) PO PRN ×2 (01:16→14:54)
[2020-04-27] MEDS: LEVALBUTEROL 1.25 MG/0.5 ML CONCENTRATE NEB NEB SCH ×4 (01:49→21:11)
[2020-04-27 04:51] LABS: HEMATOCRIT 33.3 % (36.0-47.0); HEMOGLOBIN 9.5 g/dl (12.0-15.5); MEAN CORPUSCULAR HEMOGLOBIN 23.5 pg (27.0-33.0); MEAN CORPUSCULAR HGB CONC 28.5 g/dl (32.0-36.5); MEAN CORPUSCULAR VOLUME 82.2 fl (80.0-96.0); PLATELET COUNT, AUTOMATED 324 10^3/uL (150-450); RED BLOOD COUNT 4.05 10^6/uL (4.00-5.40); WHITE BLOOD COUNT 5.8 10^3/uL (4.0-10.0)
[2020-04-27 05:13] LABS: BLOOD UREA NITROGEN 11 MG/DL (7-18); CALCIUM LEVEL 8.5 MG/DL (8.5-10.1); CARBON DIOXIDE LEVEL 33 MEQ/L (21-32); CHLORIDE LEVEL 100 MEQ/L (98-107); CREATININE FOR GFR 0.66 MG/DL (0.55-1.30); GLOMERULAR FILTRATION RATE > 60.0 (>51); GLUCOSE, FASTING 116 MG/DL (70-100); POTASSIUM SERUM 4.6 MEQ/L (3.5-5.1); SODIUM LEVEL 138 MEQ/L (136-145)
[2020-04-27] MEDS: SLF 3 ML SYR IV SCH ×3 (06:32→21:25)
[2020-04-27] MEDS: TIOTROPIUM INHALER/CAPSULE (SPIRIVA) INH SCH (08:00)
--- NOTE | 2020-04-27 08:23 | REP ---
Clinical: Pleural effusion. Technique: PA and lateral. Comparison: 04/26/2020 at 07:31 a.m.. Findings: Mediastinum and cardiac silhouette are stable. Bibasilar opacities consistent with infiltrate/atelectasis and pleural effusions (left greater than right) essentially unchanged. No pneumothorax. Skeletal structures stable. Impression: Bilateral opacities and pleural effusions (left greater than right) remain stable. Electronically Signed by Clinton Correa MD 04/27/2020 08:15 A
[2020-04-27] MEDS: MOM 30ML SUSPENSION UDC PO SCH (08:47)
[2020-04-27] MEDS: AMIODARONE 200 MG TAB (PACERONE) PO SCH ×2 (08:47→17:30)
[2020-04-27] MEDS: PANTOPRAZOLE 40MG VIAL (C9113 PER 1) IV SCH ×2 (08:47→21:24)
[2020-04-27] MEDS: DOCUSATE SODIUM 100 MG CAP PO SCH ×2 (08:47→21:24)
[2020-04-27] MEDS: GABAPENTIN 300 MG CAP PO SCH ×3 (08:47→21:24)
[2020-04-27] MEDS: FOLIC ACID 1 MG TAB PO SCH (08:47)
[2020-04-27] MEDS: ASPIRIN 81 MG ENTERIC TAB PO SCH (08:47)
[2020-04-27] MEDS: HumaLOG INSULIN (NovoLOG) PER UNIT SC SCH ×4 (08:47→21:00)
[2020-04-27] MEDS: FERROUS GLUCONATE 324 MG TAB PO SCH ×2 (08:48→17:30)
[2020-04-27] MEDS: SUCRALFATE 1 GM TAB PO SCH ×4 (08:48→21:24)
[2020-04-27] MEDS: FUROSEMIDE 40 MG TAB PO SCH (08:48)
[2020-04-27] MEDS: NORCO, ANEXSIA 5/325MG TABLET (HYDROcodone/ACETAMINOPHEN) PO PRN (11:44)
--- NOTE | 2020-04-27 16:15 | IPNPDOC ---
Subjective Date Seen The patient was seen on 04/27/20. Subjective Chief Complaint/HPI She is in good spirits this morning. She reports that her breathing has somewhat improved. She also reports that the edema in her lower extremities is also improving as well. She seems to be tolerating the diuretic well. The report I got from physical therapy also indicated improved stamina. She continues to have some pain at the site of the chest tube, but she reports that it is not intolerable. Otherwise, she does not have any additional complaints or issues at this time. Objective Physical Examination General Exam: Positive: Alert, Cooperative, No Acute Distress ENT Exam: Positive: Atraumatic, Mucous membr. moist/pink Chest Exam: Positive: Other (diminished at the bases, with perhaps mild scattered rales, but lung sounds are clear to auscultation in the mid lung zones and the apices.) Heart Exam: Positive: Rate Normal, Regular Rhythm, Rubs Telemetry: Positive: Sinus Abdomen Exam: Positive: Normal bowel sounds, Soft; Negative: Tenderness, Hepatospenomegaly Extremity Exam: Negative: Edema, Swelling Skin Exam: Positive: Nl turgor and temperature, Other skin issue (small area of excoriation on her upper thoracic back); Negative: Rash Neuro Exam: Positive: Normal Speech, Normal Tone Psych Exam: Positive: Mental status NL, Memory Intact Assessment /Plan Problems (1) Acute GI bleeding Status: Acute Response to Treatment: Stable (2) S/P CABG x 3 Status: Chronic (3) Atrial fibrillation with RVR Status: Acute Response to Treatment: Stable (4) Type 2 diabetes mellitus with diabetic neuropathy Status: Chronic (5) Gastroparesis due to DM Status: Chronic Response to Treatment: Stable (6) Gastritis Status: Acute Response to Treatment: Stable (7) Migraine Status: Chronic (8) COPD (chronic obstructive pulmonary disease) Status: Chronic (9) Pleural effusion Status: Acute Response to Treatment: Improving (10) CHF (congestive heart failure) Status: Acute Response to Treatment: Improving (11) Hypoxia Status: Acute Response to Treatment: Improving Plan/VTE VTE Prophylaxis Ordered?: No VTE Exclusion Pharmacological: Bleeding Risk Plan She appears to be tolerating the diuretics well, she has a net negative fluid balance, which is also confirmed by her daily weight. It appears that perhaps her lungs sound better on auscultation today than they did yesterday, and clinic ally she is certainly doing better and feeling better. Her oxygen requirements are being titrated down. She has not had any more episodes of atrial fibrillation with RVR, cardiology's input in her case is greatly appreciated. She has not had any additional episodes of bleeding, and her H&H has remained stable, and actually went up this morning, likely because of successful diuresis. No significant changes to her regimen will be made at this time, she is continuing to improve, although she still is requiring oxygen supplementation. She is not on oxygen at home. If she continues to improve, she may be a candidate to going to a Med/Surg floor tomorrow. VS, I&O, 24H, Fishbone Vital Signs/I&O Vital Signs Date Time Temp Pulse Resp B/P (MAP) Pulse Ox O2 Delivery O2 Flow Rate FiO2 04/27/20 12:14 18 Room Air 04/27/20 12:00 97.2 77 151/80 (103) 96 04/27/20 08:00 0.5 I&O- Last 24 Hours up to 6 AM 04/27/20 06:00 Intake Total 1170 ml Output Total 5700 ml Balance -4530 ml Laboratory Data 24H LABS Laboratory Tests 2 04/26/20 16:52: Bedside Glucose (Misc Panel) 185H 04/26/20 20:24: Bedside Glucose (Misc Panel) 185H 04/27/20 04:39: Nucleated Red Blood Cells % (auto) 0.3H, Anion Gap 5L, Glomerular Filtration Rate > 60.0, Calcium Level 8.5 04/27/20 07:00: Bedside Glucose (Misc Panel) 121H 04/27/20 11:45: Bedside Glucose (Misc Panel) 145H CBC/BMP Laboratory Tests 04/27/20 04:39 Microbiology Microbiology 04/24/20 Stool Occult Blood (MODESTO) - Final, Complete 04/22/20 Gram Stain - Final, Complete 04/22/20 Sputum Culture - Final, Complete 04/21/20 Blood Culture - Final, Complete NO GROWTH AFTER 5 DAYS 04/21/20 Blood Culture - Final, Complete NO GROWTH AFTER 5 DAYS 04/21/20 Acid Fast Stain, Received Pending 04/21/20 Mycobacterial Culture, Received Pending 04/21/20 Fungal Smear, Received Pending 04/21/20 Fungal Culture, Received Pending 04/21/20 Body Fluid Culture - Final, Complete 04/21/20 Gram Stain - Final, Complete 04/21/20 Anaerobic Culture - Final, Complete ISABELA DUARTE DO Apr 27, 2020 16:15
[2020-04-27] MEDS: ATORVASTATIN 20 MG TAB PO SCH (21:24)
[2020-04-27] MEDS: LOSARTAN 25 MG TAB PO SCH (21:24)
[2020-04-27] MEDS: LEVEMIR (INSULIN DETEMIR) 1 UNITS/0.01ML SC SCH (21:25)
[2020-04-28] VITALS (15 sets, daily range): BP systolic 102–124; BP diastolic 58–75; O2SAT 92–96
[2020-04-28] MEDS: LEVALBUTEROL 1.25 MG/0.5 ML CONCENTRATE NEB NEB SCH ×4 (01:30→19:40)
[2020-04-28] MEDS: SLF 3 ML SYR IV SCH ×3 (06:01→21:10)
[2020-04-28 06:22] LABS: HEMATOCRIT 34.8 % (36.0-47.0); HEMOGLOBIN 10.1 g/dl (12.0-15.5); MEAN CORPUSCULAR HEMOGLOBIN 23.7 pg (27.0-33.0); MEAN CORPUSCULAR VOLUME 81.7 fl (80.0-96.0); PLATELET COUNT, AUTOMATED 357 10^3/uL (150-450); RED BLOOD COUNT 4.26 10^6/uL (4.00-5.40); WHITE BLOOD COUNT 6.1 10^3/uL (4.0-10.0)
[2020-04-28] MEDS: TIOTROPIUM INHALER/CAPSULE (SPIRIVA) INH SCH (08:16)
--- NOTE | 2020-04-28 08:16 | REP ---
Clinical: Pleural effusion followup. Technique: PA and lateral. Comparison: 04/27/2020. Findings: Left lower lobe consolidation and effusion essentially unchanged. Small right basilar atelectasis and pleural reaction are also suggested. No pneumothorax. Mediastinum and cardiac silhouette are normal / stable. Remainder of the aerated lung perla are essentially clear and considerably improved as compared through 04/23/2020. Impression: 1. Residual stable moderate left pleural effusion and left lower lobe consolidation and suspected trace right basilar atelectasis and small pleural reaction. 2. Remainder of the aerated lung perla are essentially clear and improved when compared through 04/23/2020. Electronically Signed by Clinton Correa MD 04/28/2020 08:07 A
[2020-04-28] MEDS: PANTOPRAZOLE 40MG VIAL (C9113 PER 1) IV SCH (08:55)
[2020-04-28] MEDS: GABAPENTIN 300 MG CAP PO SCH ×3 (08:55→21:02)
[2020-04-28] MEDS: FOLIC ACID 1 MG TAB PO SCH (08:55)
[2020-04-28] MEDS: ASPIRIN 81 MG ENTERIC TAB PO SCH (08:55)
[2020-04-28] MEDS: SUCRALFATE 1 GM TAB PO SCH ×4 (08:55→21:03)
[2020-04-28] MEDS: AMIODARONE 200 MG TAB (PACERONE) PO SCH ×2 (08:55→17:34)
[2020-04-28] MEDS: FUROSEMIDE 40 MG TAB PO SCH (08:56)
[2020-04-28] MEDS: DOCUSATE SODIUM 100 MG CAP PO SCH ×2 (08:56→21:03)
[2020-04-28] MEDS: FERROUS GLUCONATE 324 MG TAB PO SCH ×2 (08:56→17:33)
[2020-04-28] MEDS: HumaLOG INSULIN (NovoLOG) PER UNIT SC SCH ×4 (08:57→20:54)
[2020-04-28] MEDS: MOM 30ML SUSPENSION UDC PO SCH (08:57)
[2020-04-28] MEDS: PERCOCET 5MG/325MG TAB PO PRN (10:08)
[2020-04-28] MEDS ORDERED: ACETAMINOPHEN TAB 650MG DOSE (2X325MG) PO PRN (17:30)
--- NOTE | 2020-04-28 17:43 | IPNPDOC ---
Subjective Date Seen The patient was seen on 04/28/20. Subjective Chief Complaint/HPI She continues to show improvement on a day-to-day basis. I believe that [facility]. She continues to do well with physical therapy. She does have some minor pain at the site of the previous chest tube, but again reports of this seems to be getting better on a daily basis as well. The remainder of her review of systems is negative. Objective Physical Examination General Exam: Positive: Alert, No Acute Distress ENT Exam: Positive: Atraumatic, Mucous membr. moist/pink Chest Exam: Positive: Rales (at the bases, otherwise clear) Heart Exam: Positive: Rate Normal, Regular Rhythm, Rubs Telemetry: Positive: Sinus Abdomen Exam: Positive: Normal bowel sounds, Soft; Negative: Tenderness, Hepatospenomegaly Extremity Exam: Negative: Edema, Swelling Skin Exam: Positive: Nl turgor and temperature, Other skin issue (small area of excoriation on her upper thoracic back); Negative: Rash Neuro Exam: Positive: Normal Speech, Normal Tone Psych Exam: Positive: Mental status NL, Memory Intact Assessment /Plan Problems (1) Acute GI bleeding Status: Acute Response to Treatment: Stable (2) S/P CABG x 3 Status: Chronic (3) Atrial fibrillation with RVR Status: Acute Response to Treatment: Stable (4) Type 2 diabetes mellitus with diabetic neuropathy Status: Chronic (5) Gastroparesis due to DM Status: Chronic Response to Treatment: Stable (6) Gastritis Status: Acute Response to Treatment: Stable (7) Migraine Status: Chronic (8) COPD (chronic obstructive pulmonary disease) Status: Chronic (9) Pleural effusion Status: Acute Response to Treatment: Improving (10) CHF (congestive heart failure) Status: Acute Response to Treatment: Improving (11) Hypoxia Status: Acute Response to Treatment: Improving Plan/VTE VTE Prophylaxis Ordered?: No VTE Exclusion Pharmacological: Bleeding Risk Plan H&H continues to be stable, no evidence of rebleed. She is getting stronger per physical therapy. No events on telemetry. She has weaned off of oxygen. Will transfer to [facility] floor. VS, I&O, 24H, Fishbone Vital Signs/I&O Vital Signs Date Time Temp Pulse Resp B/P (MAP) Pulse Ox O2 Delivery O2 Flow Rate FiO2 04/28/20 16:00 92 Room Air 04/28/20 14:00 98.6 72 17 112/66 (81) 04/27/20 08:00 0.5 I&O- Last 24 Hours up to 6 AM 04/28/20 06:00 Intake Total 720 ml Output Total 4625 ml Balance -3905 ml Laboratory Data 24H LABS Laboratory Tests 2 04/27/20 21:02: Bedside Glucose (Misc Panel) 230H 04/28/20 05:56: Nucleated Red Blood Cells % (auto) 0.0 04/28/20 08:51: Bedside Glucose (Misc Panel) 212H 04/28/20 12:09: Bedside Glucose (Misc Panel) 181H 04/28/20 16:51: Bedside Glucose (Misc Panel) 180H CBC/BMP Laboratory Tests 04/28/20 05:56 Microbiology Microbiology 04/24/20 Stool Occult Blood (MODESTO) - Final, Complete 04/22/20 Gram Stain - Final, Complete 04/22/20 Sputum Culture - Final, Complete 04/21/20 Blood Culture - Final, Complete NO GROWTH AFTER 5 DAYS 04/21/20 Blood Culture - Final, Complete NO GROWTH AFTER 5 DAYS 04/21/20 Acid Fast Stain, Received Pending 04/21/20 Mycobacterial Culture, Received Pending 04/21/20 Fungal Smear, Received Pending 04/21/20 Fungal Culture, Received Pending 04/21/20 Body Fluid Culture - Final, Complete 04/21/20 Gram Stain - Final, Complete 04/21/20 Anaerobic Culture - Final, Complete ISABELA DUARTE DO Apr 28, 2020 17:43
[2020-04-28] MEDS: LOSARTAN 25 MG TAB PO SCH (21:02)
[2020-04-28] MEDS: ATORVASTATIN 20 MG TAB PO SCH (21:03)
[2020-04-28] MEDS: LEVEMIR (INSULIN DETEMIR) 1 UNITS/0.01ML SC SCH (21:03)
[2020-04-29] VITALS (8 sets, daily range): BP systolic 109–132; BP diastolic 56–69; O2SAT 92–97
[2020-04-29] MEDS: LEVALBUTEROL 1.25 MG/0.5 ML CONCENTRATE NEB NEB SCH ×4 (02:00→18:43)
[2020-04-29] MEDS: SLF 3 ML SYR IV SCH ×3 (05:17→21:10)
[2020-04-29 07:06] LABS: HEMATOCRIT 35.2 % (36.0-47.0); HEMOGLOBIN 10.4 g/dl (12.0-15.5); MEAN CORPUSCULAR HEMOGLOBIN 24.1 pg (27.0-33.0); MEAN CORPUSCULAR HGB CONC 29.5 g/dl (32.0-36.5); MEAN CORPUSCULAR VOLUME 81.7 fl (80.0-96.0); PLATELET COUNT, AUTOMATED 321 10^3/uL (150-450); RED BLOOD COUNT 4.31 10^6/uL (4.00-5.40); WHITE BLOOD COUNT 7.4 10^3/uL (4.0-10.0)
[2020-04-29] MEDS: SUCRALFATE 1 GM TAB PO SCH ×4 (08:26→21:07)
[2020-04-29] MEDS: GABAPENTIN 300 MG CAP PO SCH ×3 (08:26→21:07)
[2020-04-29] MEDS: HumaLOG INSULIN (NovoLOG) PER UNIT SC SCH ×4 (08:26→21:00)
[2020-04-29] MEDS: FOLIC ACID 1 MG TAB PO SCH (08:26)
[2020-04-29] MEDS: AMIODARONE 200 MG TAB (PACERONE) PO SCH ×2 (08:26→17:53)
[2020-04-29] MEDS: FUROSEMIDE 40 MG TAB PO SCH (08:26)
[2020-04-29] MEDS: FERROUS GLUCONATE 324 MG TAB PO SCH ×2 (08:26→17:52)
[2020-04-29] MEDS: ASPIRIN 81 MG ENTERIC TAB PO SCH (08:26)
[2020-04-29] MEDS: DOCUSATE SODIUM 100 MG CAP PO SCH ×3 (08:27→21:08)
[2020-04-29] MEDS: MOM 30ML SUSPENSION UDC PO SCH (08:27)
--- NOTE | 2020-04-29 10:32 | REP ---
Clinical: Pleural effusion. Technique: PA and lateral. Comparison: 04/28/2020. Findings: Mediastinum and cardiac silhouette are stable. Evidence of prior sternotomy and CABG. The right hemithorax is clear. Left basilar atelectasis and small left pleural effusion are again identified and similar to prior examination. No new process appreciated. No pneumothorax. Skeletal structures are stable with old left rib fractures again suggested. Impression: Left basilar opacity and small pleural effusion similar to prior examination. Electronically Signed by Clinton Correa MD 04/29/2020 10:23 A
[2020-04-29] MEDS: NORCO, ANEXSIA 5/325MG TABLET (HYDROcodone/ACETAMINOPHEN) PO PRN (12:44)
--- NOTE | 2020-04-29 13:25 | IPNPDOC ---
Subjective Date Seen The patient was seen on 04/29/20. Subjective Chief Complaint/HPI She is laying in bed this morning, she reports that she is just tired. Not necessarily weak, she has been able to eat. She does complain of chronic lower extremity pain which apparently is due to peripheral vascular disease. Otherwise, she is not short of breath, and at the moment she does not have any chest pain, if she does it is minimal and only when she is moving around. The remainder of her review systems is negative Objective Physical Examination General Exam: Positive: Alert, Cooperative, No Acute Distress ENT Exam: Positive: Atraumatic, Mucous membr. moist/pink Chest Exam: Positive: Clear to auscultation Heart Exam: Positive: Rate Normal, Regular Rhythm, Rubs Telemetry: Positive: Sinus Abdomen Exam: Positive: Normal bowel sounds, Soft; Negative: Tenderness Extremity Exam: Negative: Edema, Swelling Skin Exam: Positive: Nl turgor and temperature, Other skin issue (small area of excoriation on her upper thoracic back); Negative: Rash Neuro Exam: Positive: Normal Speech, Normal Tone Psych Exam: Positive: Mental status NL, Memory Intact Assessment /Plan Problems (1) Acute GI bleeding Status: Resolved Response to Treatment: Stable (2) S/P CABG x 3 Status: Chronic (3) Atrial fibrillation with RVR Status: Acute Response to Treatment: Stable (4) Type 2 diabetes mellitus with diabetic neuropathy Status: Chronic (5) Gastroparesis due to DM Status: Chronic Response to Treatment: Stable (6) Gastritis Status: Acute Response to Treatment: Stable (7) Migraine Status: Chronic (8) COPD (chronic obstructive pulmonary disease) Status: Chronic (9) Pleural effusion Status: Acute Response to Treatment: Improving (10) CHF (congestive heart failure) Status: Acute Response to Treatment: Improving (11) Hypoxia Status: Resolved Plan/VTE VTE Prophylaxis Ordered?: No VTE Exclusion Pharmacological: Bleeding Risk Plan She continues to do well off the oxygen. I really cannot appreciate any rales. Lower extremity edema is significantly improved, and it is essentially resolved. H&H continues to trend upward, and she is tolerating a regular consistent carbohydrates diet. She seems to be particularly exhausted today, I suspect that she will be ready for discharge tomorrow VS, I&O, 24H, Fishbone Vital Signs/I&O Vital Signs Date Time Temp Pulse Resp B/P (MAP) Pulse Ox O2 Delivery O2 Flow Rate FiO2 04/29/20 12:44 18 04/29/20 06:00 98.9 73 119/69 (86) 96 Room Air 04/27/20 08:00 0.5 I&O- Last 24 Hours up to 6 AM 04/29/20 06:00 Intake Total 820 ml Output Total 1000 ml Balance -180 ml Laboratory Data 24H LABS Laboratory Tests 2 04/28/20 16:51: Bedside Glucose (Misc Panel) 180H 04/28/20 20:52: Bedside Glucose (Misc Panel) 210H 04/29/20 06:35: Bedside Glucose (Misc Panel) 193H 04/29/20 06:39: Nucleated Red Blood Cells % (auto) 0.0 04/29/20 12:09: Bedside Glucose (Misc Panel) 197H CBC/BMP Laboratory Tests 04/29/20 06:39 Microbiology Microbiology 04/24/20 Stool Occult Blood (MODESTO) - Final, Complete 04/22/20 Gram Stain - Final, Complete 04/22/20 Sputum Culture - Final, Complete 04/21/20 Blood Culture - Final, Complete NO GROWTH AFTER 5 DAYS 04/21/20 Blood Culture - Final, Complete NO GROWTH AFTER 5 DAYS 04/21/20 Acid Fast Stain, Received Pending 04/21/20 Mycobacterial Culture, Received Pending 04/21/20 Fungal Smear, Received Pending 04/21/20 Fungal Culture, Received Pending 04/21/20 Body Fluid Culture - Final, Complete 04/21/20 Gram Stain - Final, Complete 04/21/20 Anaerobic Culture - Final, Complete ISABELA DUARTE DO Apr 29, 2020 13:25
[2020-04-29] MEDS: ATORVASTATIN 20 MG TAB PO SCH (21:08)
[2020-04-29] MEDS: LOSARTAN 25 MG TAB PO SCH (21:08)
[2020-04-29] MEDS: LEVEMIR (INSULIN DETEMIR) 1 UNITS/0.01ML SC SCH (21:09)
[2020-04-30 02:00] VITALS: BP 120/79
[2020-04-30] MEDS: LEVALBUTEROL 1.25 MG/0.5 ML CONCENTRATE NEB NEB SCH ×2 (02:00→07:44)
[2020-04-30] MEDS: SLF 3 ML SYR IV SCH (05:38)
[2020-04-30 06:00] VITALS: BP 93/57
[2020-04-30 06:29] LABS: HEMATOCRIT 36.6 % (36.0-47.0); HEMOGLOBIN 10.7 g/dl (12.0-15.5); MEAN CORPUSCULAR HEMOGLOBIN 23.5 pg (27.0-33.0); MEAN CORPUSCULAR HGB CONC 29.2 g/dl (32.0-36.5); MEAN CORPUSCULAR VOLUME 80.4 fl (80.0-96.0); PLATELET COUNT, AUTOMATED 354 10^3/uL (150-450); RED BLOOD COUNT 4.55 10^6/uL (4.00-5.40)
[2020-04-30] MEDS: FUROSEMIDE 40 MG TAB PO SCH (08:09)
[2020-04-30] MEDS: GABAPENTIN 300 MG CAP PO SCH (08:09)
[2020-04-30] MEDS: AMIODARONE 200 MG TAB (PACERONE) PO SCH (08:10)
[2020-04-30] MEDS: HumaLOG INSULIN (NovoLOG) PER UNIT SC SCH (08:10)
[2020-04-30] MEDS: SUCRALFATE 1 GM TAB PO SCH (08:10)
[2020-04-30] MEDS: FERROUS GLUCONATE 324 MG TAB PO SCH (08:10)
[2020-04-30] MEDS: NORCO, ANEXSIA 5/325MG TABLET (HYDROcodone/ACETAMINOPHEN) PO PRN (08:11)
[2020-04-30] MEDS: FOLIC ACID 1 MG TAB PO SCH (08:11)
[2020-04-30] MEDS: ASPIRIN 81 MG ENTERIC TAB PO SCH (08:11)
[2020-04-30] MEDS: MOM 30ML SUSPENSION UDC PO SCH (08:12)
[2020-04-30] MEDS: DOCUSATE SODIUM 100 MG CAP PO SCH (08:12)
[2020-04-30] MEDS ORDERED: AMIO200T PO (08:52)
[2020-04-30] MEDS ORDERED: FURO40TA2 PO (08:52)
[2020-04-30] MEDS ORDERED: COZA1TAB PO (08:52)
--- NOTE | 2020-04-30 12:33 | REP ---
REASON: Followup. The latest prior 04/29/2020. The cardiomediastinal silhouette and lung perla are unchanged. Persistent left lower lobe opacity status quo. Previous median sternotomy status quo. Mild cardiomegaly status quo. Osseous structures are stable. IMPRESSION: No changed. Electronically Signed by Antione Contreras DO 04/30/2020 01:24 P
--- NOTE | 2020-04-30 13:22 | IPN ---
DATE: 04/25/2020 Mrs. Perez is in her usual depressed demeanor this morning. She does not have much complaint, but her answers are fairly minimal. She still complains about a little bit of left-sided chest discomfort, but denies much dyspnea. She said she did not sleep very well for unclear reasons. Vital signs: Blood pressure 158/96, heart rate has been in 80s, sinus rhythm. Saturation 97% on room air. Her fluid balance yesterday was recorded as positive about a liter but weight is unchanged. I think it is likely that her urine output was not well recorded. CVP does not look high. Lungs are reasonably clear on the left; on the right she has some end inspiratory crackles. Heart exam reveals regular rhythm without gallop or rub. Abdomen is soft, nontender. She has about 2+ edema on her dorsum of her feet, which is worse than yesterday, but she said she has been sitting in a chair at least an hour this morning already LABORATORY: Basic metabolic panel is normal, but for a glucose 130. Complete blood count (CBC): Hemoglobin 8.7, hematocrit 28, platelet count 309 ASSESSMENT/PLAN: Mrs. Joseluis Perez is a 54-year-old female who underwent open heart surgery on April 08, with two-vessel bypass after presentation with acute coronary syndrome. She got MORRISON to LAD and SVG to obtuse marginal. EF was about 30%. She presented with a large left pleural effusion and was quite hypotensive initially. Ejection fraction though has improved and she now has approximately moderate left ventricular systolic dysfunction. I do believe that she is slowly improving, but unfortunately her anticoagulants were discontinued yesterday after her stools were guaiac positive and she is quite anemic. I see that also her aspirin was discontinued, which I think is not a good idea and I am going to restart the medication. Consequently I will continue amiodarone because it is very likely that without it she would go back into atrial fibrillation. As far as the heart failure is concerned, she still appears mildly volume overloaded. Unfortunately, her blood pressure was very low on admission. We had to hold some of her medications but it has improved and believe we can restart low dose ARB. Otherwise, she is on high-dose statin, but now I am seeing that it was discontinued as well. So, I will restart it. From my perspective, she probably can be discharged in the near future.
--- NOTE | 2020-04-30 16:49 | DS.PDOC ---
Discharge Summary General Date of Admission Apr 21, 2020 at 18:34 Date of Discharge 04/30/2020 Discharge Summary PRIMARY CARE PHYSICIAN: JESSICA Cruz ATTENDING AT TIME OF DISCHARGE: Dr. Isabela Hammonds, DISCHARGE DIAGNOS(E)S: Pleural effusion secondary to "on pump" open-heart surgery Status post coronary artery bypass grafting Coronary artery disease Prior myocardial infarction Pulmonary edema Diabetes Hypertension Prior lobectomy, left lower lobe, stage I adenocarcinoma of the lung Systolic dysfunction with a preoperative ejection fraction of 30%, and postoperatively 40-50% Hypercholesterolemia Tobacco abuse COPD HPI & HOSPITAL COURSE: 54-year-old female who underwent open heart surgery on 04/08/2020 with 2 vessel bypass after presentation with acute coronary syndrome. She got MORRISON to LAD and SVG to obtuse marginal. The EF was about 30%. She presented with a large left pleural effusion and was quite hypotensive initially, cardiothoracic surgery was consulted and a chest tube was placed for drainage. This remained in place for a few days, and once the output slowed down, it was subsequently removed. She did have minor reaccumulation of pleural fluid, but this was managed medically with diuretics. Cardiology was also consulted her during her hospitalization for management of postoperative paroxysmal atrial fibrillation, doses of amiodarone, furosemide, losartan, and metoprolol were all adjusted during her stay, please see below for her new regimen. PHYSICAL EXAMINATION ON DISCHARGE: GENERAL: Awake, alert, she is in no acute distress. She is feeling well and would like to go home today. CARDIOVASCULAR EXAMINATION: Regular rate and rhythm at this time, with no rubs, gallops, or murmur. RESPIRATORY EXAMINATION: Clear to auscultation bilaterally with no wheezes, or rhonchi. ABDOMINAL EXAMINATION: Soft, nontender, nondistended. Bowel sounds present. EXTREMITIES: No clubbing noted. 2+ pulses in the radial bilaterally. Perhaps some trace edema noted in the bilateral feet. DISPOSITION: Home DISCHARGE INSTRUCTIONS: She has appointment with her cardiothoracic surgeon in [place] next week, she was encouraged to keep this appointment. Otherwise, follow-up with primary care provider within 7-10 days. Recommend 2 g sodium restriction diet, as well as consistent carbohydrates diet. Activity as tolerated. If symptoms return, or if you experience worsening of your symptoms, please call your doctor or return to the emergency department. DISCHARGE MEDICATIONS: Continue taking from home: Albuterol inhaler, 2 puffs inhaled every 4 hours when necessary shortness of breath/wheezing Eliquis 5 mg by mouth twice a day Aspirin 81 mg by mouth daily 8 atorvastatin 40 mg by mouth daily Steglatro 15 mg by mouth daily Ferrous gluconate 324 mg by mouth twice a day with meals Full acid 1 mg by mouth daily Gabapentin 6R milligrams by mouth 3 times a day Monroe 5-325 mg one tablet every 4 hours when necessary pain Insulin glargine 45 units subcutaneously daily at bedtime Short acting insulin subcutaneously before meals per sliding scale Reglan 10 mg by mouth 4 times a day when necessary diabetic gastroparesis Omeprazole 20 mg by mouth daily Sucralfate 1 g by mouth 4 times a day Sumatriptan and 1 tablet by mouth daily when necessary migraine Incruse Ellipta 62.5 MCG 1 puff inhaled daily New Medications: Amiodarone 200 mg by mouth twice a day at 8:30 AM and 6:30 PM Furosemide 40 mg by mouth daily Losartan 25 mg by mouth daily at bedtime Stop Taking: Amiodarone 400 mg daily Furosemide 20 mg daily Losartan 50 mg daily Metoprolol succinate 25 mg daily Vital Signs/I&Os Vital Signs Date Time Temp Pulse Resp B/P (MAP) Pulse Ox O2 Delivery O2 Flow Rate FiO2 04/30/20 08:41 20 04/30/20 06:00 97.8 73 93/57 (69) 95 Room Air 04/27/20 08:00 0.5 I&O- Last 24 Hours up to 6 AM 04/30/20 05:59 Intake Total 1040 ml Output Total 0 ml Balance 1040 ml Laboratory Data Labs 24H Laboratory Tests 2 04/29/20 17:20: Bedside Glucose (Misc Panel) 191H 04/29/20 20:33: Bedside Glucose (Misc Panel) 227H 04/30/20 05:40: Bedside Glucose (Misc Panel) 264H 04/30/20 06:03: Nucleated Red Blood Cells % (auto) 0.0 04/30/20 11:27: Bedside Glucose (Misc Panel) 240H CBC/BMP Laboratory Tests 04/30/20 06:03 FSBS Laboratory Tests Test 04/29/20 17:20 04/29/20 20:33 04/30/20 05:40 04/30/20 11:27 Range/Units Bedside Glucose (Misc Panel) 191 227 264 240 70-105 MG/DL Microbiology Microbiology 04/24/20 Stool Occult Blood (MODESTO) - Final, Complete 04/22/20 Gram Stain - Final, Complete 04/22/20 Sputum Culture - Final, Complete 04/21/20 Blood Culture - Final, Complete NO GROWTH AFTER 5 DAYS 04/21/20 Blood Culture - Final, Complete NO GROWTH AFTER 5 DAYS 04/21/20 Acid Fast Stain, Received Pending 04/21/20 Mycobacterial Culture, Received Pending 04/21/20 Fungal Smear, Received Pending 04/21/20 Fungal Culture, Received Pending 04/21/20 Body Fluid Culture - Final, Complete 04/21/20 Gram Stain - Final, Complete 04/21/20 Anaerobic Culture - Final, Complete Discharge Medications Scheduled Amiodarone HCl (Amiodarone HCl) 200 Mg Tablet, 200 MG PO BID@0830,1830 Apixaban (Eliquis) 5 Mg Tablet, 5 MG PO BID, (Reported) Aspirin (Aspirin EC) 81 Mg Tablet.dr, 81 MG PO DAILY, (Reported) Atorvastatin Calcium (Atorvastatin Calcium) 40 Mg Tablet, 40 MG PO DAILY, (Reported) Ertugliflozin Pidolate (Steglatro) 15 Mg Tablet, 15 MG PO DAILY, (Reported) Ferrous Gluconate (Ferrous Gluconate) 324 Mg Tablet, 324 MG PO BIDWM, (Reported) Folic Acid (Folic Acid) 1 Mg Tablet, 1 MG PO DAILY, (Reported) Furosemide (Furosemide) 40 Mg Tablet, 40 MG PO DAILY Gabapentin (Neurontin) 600 Mg Tablet, 600 MG PO TID, (Reported) Insulin Glargine,Hum.rec.anlog (Basaglar Kwikpen U-100) 100 Unit/1 Ml Insuln.pen, 45 UNIT SC QHS, (Reported) Insulin Lispro (Admelog) 100 Unit/1 Ml Vial, 1 DOSE SC AC, (Reported) PER SLIDING SCALE Losartan Potassium (Cozaar) 25 Mg Tablet, 25 MG PO QHS Metoclopramide HCl (Metoclopramide HCl) 10 Mg Tablet, 10 MG PO QID, (Reported) Omeprazole (Omeprazole) 20 Mg Capsule.dr, 20 MG PO DAILY, (Reported) Sucralfate (Sucralfate) 1 Gm Tablet, 1 GM PO QID, (Reported) Umeclidinium [place] (Incruse Ellipta) 62.5 Mcg Blst.w.dev, 1 PUFF INH DAILY, (Reported) Scheduled PRN Albuterol Sulfate (Proventil Hfa) 6.7 Gm Hfa.aer.ad, 2 PUFF INH Q4H PRN for SOB/WHEEZING, (Reported) Albuterol Sulfate (Albuterol Sulfate) 2.5 Mg/0.5 Ml Vial.neb, 1 VIAL NEB Q6H PRN for SOB/WHEEZING, (Reported) Hydrocodone/Acetaminophen (Hydrocodone-Acetamin 5-325 mg) 1 Each Tablet, 2 TAB PO Q4H PRN for pain, (Reported) Sumatriptan Succinate (Sumatriptan Succinate) 50 Mg Tablet, 1 TAB PO DAILY PRN for MIGRAINE, (Reported) MAY REPEAT ONCE IN 2 HOURS IF SYMPTOMS PERSIST Allergies Coded Allergies: FISH (Verified Allergy, Unknown, 04/21/20) ISABELA HAMMONDS DO Apr 30, 2020 16:49
== END 2020-04-30 12:04 | disposition home or self-care (01) | DRG 143 ==
LOC: EDBD 12:19 → M ED 12:19 → M ED INP 18:34 → ENRESERV 18:36 → M ICU 18:52 → M PCU 04-23 14:55 → M MSPAV 04-28 09:54
PROVIDERS: ADMIT Internal Medicine; ATTEND Neuromusculoskeletal Medicine & OMM
PROC: 0W9B00Z Drainage of Left Pleural Cavity with Drainage Device, Open Approach (ICD-10-PCS; principal; 2020-04-21)
PROC: 30233N1 Transfusion of Nonautologous Red Blood Cells into Peripheral Vein, Percutaneous Approach (ICD-10-PCS; 2020-04-24)
DX: J95.89 Other postprocedural complications and disorders of respiratory system, not elsewhere classified (principal); I21.09 ST elevation (STEMI) myocardial infarction involving other coronary artery of anterior wall; I50.21 Acute systolic (congestive) heart failure; E87.4 Mixed disorder of acid-base balance; J91.8 Pleural effusion in other conditions classified elsewhere; K29.71 Gastritis, unspecified, with bleeding; I48.0 Paroxysmal atrial fibrillation; G43.709 Chronic migraine without aura, not intractable, without status migrainosus; E11.42 Type 2 diabetes mellitus with diabetic polyneuropathy; E11.43 Type 2 diabetes mellitus with diabetic autonomic (poly)neuropathy; K31.84 Gastroparesis; I25.110 Atherosclerotic heart disease of native coronary artery with unstable angina pectoris; E78.5 Hyperlipidemia, unspecified; I12.9 Hypertensive chronic kidney disease with stage 1 through stage 4 chronic kidney disease, or unspecified chronic kidney disease; F17.210 Nicotine dependence, cigarettes, uncomplicated; J44.9 Chronic obstructive pulmonary disease, unspecified; I87.2 Venous insufficiency (chronic) (peripheral); M50.322 Other cervical disc degeneration at C5-C6 level; Z79.01 Long term (current) use of anticoagulants; Z79.4 Long term (current) use of insulin; Z79.899 Other long term (current) drug therapy; Z91.013 Allergy to seafood; Z95.5 Presence of coronary angioplasty implant and graft; Z85.118 Personal history of other malignant neoplasm of bronchus and lung; Z90.2 Acquired absence of lung [part of]; Z11.59 Encounter for screening for other viral diseases; F32.9 Major depressive disorder, single episode, unspecified; R09.02 Hypoxemia; Y83.1 Surgical operation with implant of artificial internal device as the cause of abnormal reaction of the patient, or of later complication, without mention of misadventure at the time of the procedure

== ENCOUNTER 2020-08-22 09:00 | Emergency (ER) | payer OTHER ==
[~2020-08-22] VITALS: Ht 165.1 cm; Wt 77.3 kg
[~2020-08-22 09:00] MED LIST: ADME100I SC; ALB2.5NEB NEB; AMIO200T3 PO; AMIO200T37 PO; AMIO400T7 PO; ASPI81TA26 PO; ATOR40TA75 PO; BASA100I SC; COZA1TAB PO; ELIQ5TAB PO; FERR325T16 PO; FOLI1TAB11 PO; FURO20TA2 PO; FURO40TA2 PO; HYDR-3713 PO; INCR1INH INH; K-TA10TA2 PO; LOSA25TA14 PO; LOSA50TA88 PO; METO10TA2 PO; METO1TAB32 PO; METO200T28 PO; MM S100C PO; NEUR600T PO; OMEP-218 PO; PROV108A INH; STEG15TA PO; SUCR1TA PO; SUMA50TA2 PO
[2020-08-22] MEDS ORDERED: HALOPERIDOL 5MG/ML VIAL (J1630 PER 1) IV ONE (09:30)
[2020-08-22 09:37] LABS: BASO # 0.1 10^3/uL (0.0-0.2); BASO % 0.7 % (0.0-1.0); EOS # 0.1 10^3/uL (0.0-0.5); EOS % 1.6 % (0.0-3.0); HEMATOCRIT 41.6 % (36.0-47.0); HEMOGLOBIN 11.6 g/dl (12.0-15.5); LYMPH # 2.5 10^3/uL (1.5-5.0); LYMPH % 30.8 % (24.0-44.0); MEAN CORPUSCULAR HEMOGLOBIN 20.7 pg (27.0-33.0); MEAN CORPUSCULAR HGB CONC 27.9 g/dl (32.0-36.5); MEAN CORPUSCULAR VOLUME 74.2 fl (80.0-96.0); MONO # 0.9 10^3/uL (0.0-0.8); MONO % 10.6 % (0.0-5.0); NEUTROPHILS # 4.5 10^3/uL (1.5-8.5); NEUTROPHILS % 55.9 % (36.0-66.0); PLATELET COUNT, AUTOMATED 346 10^3/uL (150-450); RED BLOOD COUNT 5.61 10^6/uL (4.00-5.40); WHITE BLOOD COUNT 8.1 10^3/uL (4.0-10.0)
--- NOTE | 2020-08-22 09:54 | REP ---
INDICATION: CHEST PAIN COMPARISON: None. TECHNIQUE: PA/Lateral FINDINGS: Lungs: Clear, no infiltrate. Heart: Normal in size. Mediastinum: Mediastinal silhouette unremarkable. There is mild calcification of the thoracic aorta. Multiple sternal wires are present. Pleural angles: Unremarkable.. Bones and soft tissues: Unremarkable. IMPRESSION: No acute pulmonary disease. <Electronically signed by Rajeev Canas > 08/22/20 [id number]
[2020-08-22] MEDS ORDERED: ONDA4TAB6 PO (09:58)
[2020-08-22] MEDS ORDERED: METO1TAB32 PO (09:58)
[2020-08-22] MEDS ORDERED: DICY10CA13 PO (09:58)
[2020-08-22 10:07] LABS: ALBUMIN 3.2 GM/DL (3.2-5.2); ALT/SGPT 11 U/L (12-78); BILIRUBIN,DIRECT 0.1 MG/DL (0.0-0.2); BILIRUBIN,TOTAL 0.4 MG/DL (0.2-1.0); BLOOD UREA NITROGEN 20 MG/DL (7-18); CALCIUM LEVEL 9.2 MG/DL (8.5-10.1); CARBON DIOXIDE LEVEL 29 MEQ/L (21-32); CHLORIDE LEVEL 102 MEQ/L (98-107); GLOMERULAR FILTRATION RATE > 60.0 (>51); GLUCOSE, FASTING 206 MG/DL (70-100); LIPASE 26 U/L (73-393); POTASSIUM SERUM 4.4 MEQ/L (3.5-5.1); SODIUM LEVEL 138 MEQ/L (136-145); TOTAL PROTEIN 6.5 GM/DL (6.4-8.2)
[2020-08-22 13:35] VITALS: BP 174/74
--- NOTE | 2020-08-23 08:01 | ECGEPIP ---
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
== END 2020-08-22 13:58 | disposition home or self-care (01) ==
LOC: EDBD 09:00 → M ED 09:00
DX: F12.10 Cannabis abuse, uncomplicated (principal); E11.43 Type 2 diabetes mellitus with diabetic autonomic (poly)neuropathy; R07.89 Other chest pain; I11.9 Hypertensive heart disease without heart failure; I48.91 Unspecified atrial fibrillation; E78.5 Hyperlipidemia, unspecified; J44.9 Chronic obstructive pulmonary disease, unspecified; Z95.5 Presence of coronary angioplasty implant and graft; Z95.1 Presence of aortocoronary bypass graft; Z85.118 Personal history of other malignant neoplasm of bronchus and lung; F17.200 Nicotine dependence, unspecified, uncomplicated; Z91.013 Allergy to seafood; Z79.899 Other long term (current) drug therapy; Z79.01 Long term (current) use of anticoagulants; Z79.82 Long term (current) use of aspirin; Z79.4 Long term (current) use of insulin
CPT/HCPCS: 36415; 71045; 80048; 80076; 83690; 85025; 93005; 93041; 94760; 96374; 99285; J1630

== ENCOUNTER 2020-08-29 22:47 | Emergency (ER) | payer OTHER ==
[~2020-08-29] VITALS: Ht 165.1 cm; Wt 78.2 kg
[~2020-08-29 22:47] MED LIST changes: +DICY10CA13 PO; +ONDA4TAB6 PO
[2020-08-29] MEDS ORDERED: NS 1,000 ML IV ONE (23:30)
[2020-08-29] MEDS ORDERED: ONDANSETRON 4MG/2ML VIAL IV ONE (23:30)
[2020-08-29] MEDS: MORPHINE 4 MG/ML 1ML VIAL/SYRINGE (J2270) IV PRN (23:58)
[2020-08-30 00:13] LABS: BASO # 0.1 10^3/uL (0.0-0.2); BASO % 0.6 % (0.0-1.0); EOS # 0.1 10^3/uL (0.0-0.5); EOS % 0.7 % (0.0-3.0); HEMATOCRIT 40.7 % (36.0-47.0); HEMOGLOBIN 11.4 g/dl (12.0-15.5); LYMPH # 2.2 10^3/uL (1.5-5.0); LYMPH % 27.4 % (24.0-44.0); MEAN CORPUSCULAR HEMOGLOBIN 20.3 pg (27.0-33.0); MEAN CORPUSCULAR VOLUME 72.5 fl (80.0-96.0); MONO # 0.6 10^3/uL (0.0-0.8); MONO % 7.3 % (0.0-5.0); NEUTROPHILS # 5.2 10^3/uL (1.5-8.5); NEUTROPHILS % 63.6 % (36.0-66.0); PLATELET COUNT, AUTOMATED 333 10^3/uL (150-450); RED BLOOD COUNT 5.61 10^6/uL (4.00-5.40); WHITE BLOOD COUNT 8.1 10^3/uL (4.0-10.0)
[2020-08-30 00:48] LABS: ALBUMIN 3.5 GM/DL (3.2-5.2); ALT/SGPT 12 U/L (12-78); BILIRUBIN,DIRECT < 0.1 MG/DL (0.0-0.2); BILIRUBIN,TOTAL 0.3 MG/DL (0.2-1.0); LIPASE 32 U/L (73-393); TOTAL PROTEIN 7.2 GM/DL (6.4-8.2)
[2020-08-30] MEDS ORDERED: ISOVUE-370 76% 100ML VIAL As Ordered ONE (01:03)
--- NOTE | 2020-08-30 01:59 | REPVR ---
PROCEDURE INFORMATION: Exam: CT Abdomen And Pelvis With Contrast Exam date and time: 08/30/2020 12:56 AM Age: 54 years old Clinical indication: Abdominal pain; Localized; Left; Additional info: Left sided abd pain TECHNIQUE: Imaging protocol: Computed tomography of the abdomen and pelvis with intravenous contrast. Radiation optimization: All CT scans at this facility use at least one of these dose optimization techniques: automated exposure control; mA and/or kV adjustment per patient size (includes targeted exams where dose is matched to clinical indication); or iterative reconstruction. Contrast material: ISO; Contrast volume: 100 ml; Contrast route: INTRAVENOUS (IV); COMPARISON: No relevant prior studies available. FINDINGS: Limitations: Examination is limited by motion artifact. Heart: Mild cardiomegaly. Liver: Normal. No mass. Gallbladder and bile ducts: Normal. No calcified stones. No ductal dilation. Pancreas: Normal. No ductal dilation. Spleen: Normal. No splenomegaly. Adrenal glands: Normal. No mass. Kidneys and ureters: Normal. No hydronephrosis. Stomach and bowel: Severe stool in the colon. No abnormal bowel dilatation. No abnormal bowel wall thickening. Negative for colonic diverticulitis. Appendix: The appendix is not seen. However, there is no evidence of appendicitis. Intraperitoneal space: Unremarkable. No free air. No significant fluid collection. Vasculature: Severe atherosclerotic disease. Multiple phleboliths in the pelvis. Severe stenosis of the visualized proximal superficial femoral arteries bilaterally. Lymph nodes: Unremarkable. No enlarged lymph nodes. Urinary bladder: Unremarkable as visualized. Reproductive: Uterus is normal. Bones/joints: Patient is status post median sternotomy. Multiple healing left rib fractures. No acute fracture. Soft tissues: Small midline epigastric hernia containing fat. No evidence of incarceration. IMPRESSION: 1. Severe stool in the colon. 2. Severe stenosis of the visualized proximal superficial femoral arteries bilaterally. 3. Additional findings as described. Electronically signed by: Sarika Hinton On 08/30/2020 01:59:35 AM
[2020-08-30] MEDS: MORPHINE 4 MG/ML 1ML VIAL/SYRINGE (J2270) IV PRN (02:03)
[2020-08-30] MEDS ORDERED: MAGNESIUM CITRATE 300 ML BTL PO ONE (02:30)
[2020-08-30] MEDS ORDERED: KETOROLAC 30 MG/ML 1ML VIAL IV ONE (02:30)
[2020-08-30 02:32] VITALS: BP 140/86
--- NOTE | 2020-08-31 09:01 | ECGEPIP ---
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
== END 2020-08-30 02:42 | disposition home or self-care (01) ==
LOC: M ED 22:47
DX: K59.00 Constipation, unspecified (principal); I48.91 Unspecified atrial fibrillation; I50.9 Heart failure, unspecified; I25.10 Atherosclerotic heart disease of native coronary artery without angina pectoris; E11.9 Type 2 diabetes mellitus without complications; K31.84 Gastroparesis; R11.10 Vomiting, unspecified; F17.210 Nicotine dependence, cigarettes, uncomplicated; Z95.1 Presence of aortocoronary bypass graft; Z91.018 Allergy to other foods; Z79.899 Other long term (current) drug therapy; Z79.01 Long term (current) use of anticoagulants; Z79.4 Long term (current) use of insulin; Z79.82 Long term (current) use of aspirin
CPT/HCPCS: 74177; 80047; 80076; 83690; 85025; 86850; 86900; 86901; 93005; 93041; 96361; 96374; 96375; 96376; 99285; J1885; J2270; J2405; Q9967

== ENCOUNTER 2020-10-08 16:18 | Emergency (ER) | payer OTHER ==
[2020-10-08] MEDS ORDERED: NS 1,000 ML IV SCH (16:55)
--- NOTE | 2020-10-08 16:57 | REP ---
INDICATION: CHEST PAIN. COMPARISON: Portable chest dated 08/22/2020. TECHNIQUE: Single AP view of the chest performed portably with the patient upright. FINDINGS: The lung perla are clear. Cardiac size is normal. The gaston, mediastinum and skeletal structures are unremarkable. There are sternotomy wires, unchanged. IMPRESSION: Essentially negative portable chest <Electronically signed by Rajeev Naranjo > 10/08/20 [id number]
[2020-10-08] MEDS ORDERED: ONDANSETRON 4MG/2ML VIAL IV ONE (17:00)
[2020-10-08] MEDS: NITROGLYCERIN 0.4 MG SUBL TABLET SL PRN ×2 (17:35→18:24)
[2020-10-08] MEDS: fentaNYL 100 MCG/2 ML INJECTION (J3010) IV PRN ×2 (17:36→18:24)
[2020-10-08 17:46] LABS: BASO # 0.1 10^3/uL (0.0-0.2); BASO % 0.7 % (0.0-1.0); EOS # 0.1 10^3/uL (0.0-0.5); EOS % 1.8 % (0.0-3.0); HEMATOCRIT 38.3 % (36.0-47.0); LYMPH # 2.7 10^3/uL (1.5-5.0); LYMPH % 37.7 % (24.0-44.0); MEAN CORPUSCULAR HEMOGLOBIN 20.9 pg (27.0-33.0); MEAN CORPUSCULAR HGB CONC 28.7 g/dl (32.0-36.5); MEAN CORPUSCULAR VOLUME 72.7 fl (80.0-96.0); MONO # 0.5 10^3/uL (0.0-0.8); MONO % 7.5 % (0.0-5.0); NEUTROPHILS # 3.8 10^3/uL (1.5-8.5); PLATELET COUNT, AUTOMATED 357 10^3/uL (150-450); RED BLOOD COUNT 5.27 10^6/uL (4.00-5.40); WHITE BLOOD COUNT 7.2 10^3/uL (4.0-10.0)
[2020-10-08 18:00] LABS: PARTIAL THROMBOPLASTIN TIME 31.1 SECONDS (24.2-38.5)
[2020-10-08 18:15] LABS: ALBUMIN 3.2 GM/DL (3.2-5.2); ALT/SGPT 22 U/L (12-78); BILIRUBIN,DIRECT < 0.1 MG/DL (0.0-0.2); BILIRUBIN,TOTAL 0.3 MG/DL (0.2-1.0); BLOOD UREA NITROGEN 27 MG/DL (7-18); CALCIUM LEVEL 8.8 MG/DL (8.5-10.1); CARBON DIOXIDE LEVEL 27 MEQ/L (21-32); CHLORIDE LEVEL 104 MEQ/L (98-107); CK-MB VALUE MASS 1.3 NG/ML (<3.6); CPK CREATINE PHOSPHOKINASE 40 U/L (26-192); CREATININE FOR GFR 0.84 MG/DL (0.55-1.30); FREE T4 1.67 NG/DL (0.76-1.46); GLOMERULAR FILTRATION RATE > 60.0 (>51); GLUCOSE, FASTING 67 MG/DL (70-100); LIPASE 26 U/L (73-393); MB/CK RELATIVE INDEX 3.25 (< OR =4); POTASSIUM SERUM 4.5 MEQ/L (3.5-5.1); SODIUM LEVEL 138 MEQ/L (136-145); TOTAL PROTEIN 6.3 GM/DL (6.4-8.2); TROPONIN I < 0.02 NG/ML (< 0.10)
[2020-10-08 18:18] LABS: INR 0.92; PROTHROMBIN TIME 12.6 SECONDS (12.5-14.3)
[2020-10-08 18:24] VITALS: BP 148/60
[2020-10-08] MEDS ORDERED: ISOVUE-370 76% 100ML VIAL As Ordered ONE (19:38)
[2020-10-08 19:53] LABS: CK-MB VALUE MASS 1.2 NG/ML (<3.6); CPK CREATINE PHOSPHOKINASE 27 U/L (26-192); MB/CK RELATIVE INDEX 4.44 (< OR =4); TROPONIN I < 0.02 NG/ML (< 0.10)
[2020-10-08 20:00] VITALS: BP 151/65
--- NOTE | 2020-10-08 20:42 | REPVR ---
PROCEDURE INFORMATION: Exam: CT Head Without Contrast Exam date and time: 10/08/2020 7:47 PM Age: 54 years old Clinical indication: Numbness / parasthesia TECHNIQUE: Imaging protocol: Computed tomography of the head without contrast. Radiation optimization: All CT scans at this facility use at least one of these dose optimization techniques: automated exposure control; mA and/or kV adjustment per patient size (includes targeted exams where dose is matched to clinical indication); or iterative reconstruction. COMPARISON: No relevant prior studies available. FINDINGS: Brain: Normal. No hemorrhage. Unremarkable white matter. No mass effect. Cerebral ventricles: No ventriculomegaly. Bones/joints: Unremarkable. No acute fracture. Paranasal sinuses: Visualized sinuses are unremarkable. No fluid levels. Mastoid air cells: Visualized mastoid air cells are well aerated. Soft tissues: Unremarkable. IMPRESSION: No acute intracranial abnormality. Electronically signed by: German Castillo On 10/08/2020 20:42:24 PM
--- NOTE | 2020-10-08 20:50 | REPVR ---
PROCEDURE INFORMATION: Exam: CT Angiography Chest With Contrast Exam date and time: 10/08/2020 7:47 PM Age: 54 years old Clinical indication: Chest pain; Additional info: Left sided cp TECHNIQUE: Imaging protocol: Computed tomographic angiography of the chest with intravenous contrast. 3D rendering (Not supervised by radiologist): MIP and/or 3D reconstructed images were created by the technologist. Radiation optimization: All CT scans at this facility use at least one of these dose optimization techniques: automated exposure control; mA and/or kV adjustment per patient size (includes targeted exams where dose is matched to clinical indication); or iterative reconstruction. Contrast material: ISOVUE 370; Contrast volume: 75 ml; Contrast route: INTRAVENOUS (IV); COMPARISON: CT Chest without contrast 04/21/2020 6:15 PM FINDINGS: Pulmonary arteries: There is no evidence of filling defects within the pulmonary arterial circulation to suggest pulmonary embolism. Aorta: No aneurysmal dilatation of thoracic aorta or dissection. Atherosclerosis. Lungs: Mild subsegmental atelectasis left lung base posteriorly. Pleural space: Unremarkable. No pneumothorax. No pleural effusion. Heart: No cardiomegaly or pericardial effusion. Lymph nodes: No mediastinal or hilar lymphadenopathy. Gallbladder and bile ducts: There may be sludge in the gallbladder; no further significant findings in the upper abdomen. Bones/joints: Evidence of median sternotomy and vascular grafting. Soft tissues: Unremarkable. IMPRESSION: 1. No pulmonary emboli. 2. No evidence of pneumonia or congestive heart failure. Electronically signed by: Suma Esqueda On 10/08/2020 20:50:18 PM
[2020-10-08 23:39] LABS: CK-MB VALUE MASS 1.6 NG/ML (<3.6); CPK CREATINE PHOSPHOKINASE 40 U/L (26-192); TROPONIN I < 0.02 NG/ML (< 0.10)
--- NOTE | 2020-10-09 05:53 | ECGEPIP ---
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
--- NOTE | 2020-10-09 05:56 | ECGEPIP ---
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
--- NOTE | 2020-10-10 07:38 | ECGEPIP ---
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
== END 2020-10-09 00:37 | disposition home or self-care (01) ==
LOC: M ED 16:18
DX: R07.9 Chest pain, unspecified (principal); R42 Dizziness and giddiness; M79.602 Pain in left arm; I11.9 Hypertensive heart disease without heart failure; I48.91 Unspecified atrial fibrillation; I25.10 Atherosclerotic heart disease of native coronary artery without angina pectoris; E11.9 Type 2 diabetes mellitus without complications; I25.2 Old myocardial infarction; G47.33 Obstructive sleep apnea (adult) (pediatric); Z95.1 Presence of aortocoronary bypass graft; Z91.013 Allergy to seafood; Z79.01 Long term (current) use of anticoagulants; Z79.899 Other long term (current) drug therapy; Z79.4 Long term (current) use of insulin; Z79.82 Long term (current) use of aspirin
CPT/HCPCS: 70450; 71045; 71275; 80048; 80076; 82550; 82553; 83690; 84439; 84443; 85025; 85610; 85730; 93005; 93041; 94760; 96361; 96374; 96375; 99285; J2405; J3010; Q9967

== ENCOUNTER 2020-10-09 10:04 | Emergency (ER) | payer OTHER ==
[~2020-10-09] VITALS: Ht 160 cm; Wt 76.8 kg
[2020-10-09] MEDS ORDERED: HALOPERIDOL 5MG/ML VIAL (J1630 PER 1) IV ONE (10:30)
[2020-10-09 12:00] VITALS: BP 158/91
== END 2020-10-09 13:00 | disposition home or self-care (01) ==
LOC: M ED 10:04 → EDBD 10:04 → M ED 13:00
DX: R10.9 Unspecified abdominal pain (principal); E11.43 Type 2 diabetes mellitus with diabetic autonomic (poly)neuropathy; I11.9 Hypertensive heart disease without heart failure; I48.91 Unspecified atrial fibrillation; I25.10 Atherosclerotic heart disease of native coronary artery without angina pectoris; I25.2 Old myocardial infarction; J44.9 Chronic obstructive pulmonary disease, unspecified; G43.909 Migraine, unspecified, not intractable, without status migrainosus; G47.33 Obstructive sleep apnea (adult) (pediatric); Z95.1 Presence of aortocoronary bypass graft; Z91.013 Allergy to seafood; Z79.01 Long term (current) use of anticoagulants; Z79.4 Long term (current) use of insulin; Z79.899 Other long term (current) drug therapy; Z79.82 Long term (current) use of aspirin
CPT/HCPCS: 96374; 99284; J1630